=== PATIENT | female | born 1960 | race Caucasian/White ===

== ENCOUNTER 2017-12-21 12:39 | Inpatient (IN) ==
[2017-12-21] MEDS ORDERED: NS 1,000 ML IV ONE (13:39)
--- NOTE | 2017-12-21 13:46 | Emergency Department Report ---
Extremity Problem HPI - General Chief complaint: Extremity Problem,Nontraumatic Stated complaint: ulcer on toe Time Seen by Provider: 12/21/17 13:31 Source: patient, RN notes reviewed, old records reviewed Mode of arrival: ambulatory Limitations: no limitations - History of Present Illness HPI Narrative: 57yo woman presents to the ER for evaluation of a toe ulcer. Pt is a diabetic with diabetic neuropathy. She has a h/o osteomyelitis on the contralateral foot. Pts sx have gotten precipitously worse in the last week. She was started on doxycyline (based on sensitivities) yesterday, but has not improved dramatically after 24hrs/2 doses. Complaint: other (Ulceration) Onset (ago): day(s) Consistency: constant Location: left, toe Context: history of peripheral vascular disease (2/2 DM) - Related Data Home Medications Medication Instructions Recorded Confirmed Duloxetine HCl [Cymbalta] 60 mg PO DAILY #30 10/07/13 12/21/17 Metoprolol Succinate 100 mg PO DAILY #30 10/07/13 12/21/17 SUMAtriptan TAB [Imitrex] 100 mg PO DAILY PRN #0 tab 10/07/13 12/21/17 hydroCHLOROthiazide 25 mg PO DAILY #30 07/16/14 12/21/17 [Hydrochlorothiazide] Meloxicam [Mobic] 15 mg PO DAILY #0 tab 05/20/15 12/21/17 Amlodipine [Norvasc] 10 mg PO DAILY 12/21/17 12/21/17 Canagliflozin [Invokana] 100 mg PO DAILY 12/21/17 12/21/17 Cholecalciferol (Vitamin D3) 1,000 unit PO DAILY 12/21/17 12/21/17 [Vitamin D3] ClonazePAM [Klonopin] 0.5 mg PO BID PRN 12/21/17 12/21/17 Doxycycline Hyclate [Doxycycline 100 mg PO BID 12/21/17 12/21/17 Hyclate] Duloxetine HCl [Duloxetine HCl] 30 mg PO DAILY 12/21/17 12/21/17 Fenofibrate Nanocrystallized 145 mg PO DAILY 12/21/17 12/21/17 [Fenofibrate] Metformin [Glucophage] 1,000 mg PO WB 12/21/17 12/21/17 Omeprazole Magnesium [Prilosec Otc] 20 mg PO DAILY 12/21/17 12/21/17 Sitagliptin Phosphate [Januvia] 50 mg PO DAILY 12/21/17 12/21/17 Vitamin B Complex [Super B-50 1 cap PO DAILY 12/21/17 12/21/17 Complex] Allergies Allergy/AdvReac Type Severity Reaction Status Date / Time ampicillin Allergy HIVES Verified 12/21/17 12:46 kiwi Allergy ANAPHYLACTIC Verified 12/21/17 12:46 SHOCK Review of Systems All systems: reviewed and negative except as stated Integumentary: Reports: as per HPI, non-healing lesions, wounds PFSH Patient Stated Medical History Cerebrovascular Accident No Glaucoma Yes Hypertension Yes Pneumonia Yes: cryptococcus pneumonia 2017 Sleep Apnea Yes Diabetes Mellitus Type 2 Yes Hiatal Hernia Yes Hx Kidney Stones No Hx Renal Disease No Hx Urinary Tract Infection No Anemia Yes: none since endometrial ablation Osteoarthritis Yes: bilat knees Anesthesia Reactions No Blood Transfusions No Post Menopausal Yes: [facility] Medical History (Last Reviewed 10/13/17 @ 12:03 by Eva Choudhury Tova ) Diabetic ulcer of right foot (Acute Medical) GERD (gastroesophageal reflux disease) (Chronic Medical) Type 2 diabetes mellitus (Chronic Medical) Migraine headache (Chronic Medical) Plantar fasciitis of left foot (Chronic Medical) Depression (Chronic Medical) Anxiety (Chronic Medical) ETIENNE treated with BiPAP (Chronic Medical) Renal dysfunction (Inactive Medical) Osteoarthritis (Chronic Medical) External hemorrhoid (Chronic Medical) Esophageal stricture (Chronic Medical) Glaucoma (Chronic Medical) Adie's pupil (Chronic Medical) LT Hypercholesterolemia (Chronic Medical) Hypertension (Chronic Medical) Cryptococcal pneumonitis (Resolved Medical) Epigastric hernia (Resolved Medical) Irregular menses (Resolved Medical) Resolved with uterine ablation Surgical History: * EGD - 05/20/[address] Saini at [facility] in [place], [place]. * Uterine ablation - 07/17/[address] Argelia Brewer at [facility] in [place], [place]. * Open ventral hernia repair with mesh - 10/13/[address] Saini at [facility] in [place], [place]. She did have a 3.5 cm fascial defect in the epigastric region. An 11.[address] hernia patch was placed. * Colonoscopy with excisional hemorrhoidectomy of anterior external hemorrhoid - 10/10/[address] Saini at [facility] in [place], [place]. Colonoscopy was normal. * Excision of left great toenail - [address] Harvey in [place], [place]. * Right knee scope - 2005 Dr. Arreola at [facility] in [place], [place]. * Bone spur removed right ankle - 1974 in [place], [place]. Family History: Family History (Last Reviewed 10/13/17 @ 12:03 by Eva Choudhury Tova) Mother Colon polyps High blood pressure Hypercholesterolemia Heart disease Kidney disease Diabetes Arthritis Liver disease Father ETIENNE (obstructive sleep apnea) Colon polyps High blood pressure Hypercholesterolemia Heart disease Diabetes Arthritis Liver disease Maternal Grandmother High blood pressure Diabetes Maternal Grandfather Heart attack Paternal Grandmother Cancer of breast Diabetes Sister Diabetes Sister ETIENNE (obstructive sleep apnea) Maternal Aunt Diabetes - Social History Smoking status: Never smoker Substance use type: does not use Alcohol intake: current Alcohol intake frequency: holidays/special occasions only Household members: none Current occupational status: unemployed Current occupation: Water Truck Driver Physical Exam - Limitations Limitations: no limitations - General General appearance: alert, in no apparent distress, obese (Morbid) - Normal Exams: Head:: Normocephalic without trauma Eyes:: Pupils are PERRLA w/ EOMI, No scleral icterus, irritation, or foreign bodies noted ENMT:: No facial trauma, nasal exudates, pharyngeal erythema, or exudates are noted Neck:: Full range of motion, without adenopathy Chest/Respirations:: Clear all feng, with good airflow, and symmetry bilaterally Cardiovascular:: Regular rate and rhythm, without murmur or gallop, Pulses 2+ all extremities, capillary refill, <2 seconds all extremities Lymphatic:: No lymphadenopathy Musculoskeletal:: No tenderness, or deformity noted Neurological:: Patient is alert, and oriented Psychiatric:: Patient exhibits, appropriate attention - Skin Skin exam: Present: warm, dry. Absent: intact (Ulceration of the inferomedial aspect of pts great, left toe. Surrounding tissue is liquefying, tunneling, and darkening. The toe itself is swollen and erythematous. There is fibrin in the base of the ulcer.) Course - Consultations Consultation #1: Wound Care: Recommend that pt be admitted; can perform serial exams and debridement while pt is admitted. If pt will not be admitted, call and can arrange f/u. Time: 13:43 Consultation #2: Hospitalist: Will admit for IV atbx and wound care consult. Time: 14:38 Vital Signs Temperature 98.7 F 12/21/17 12:45 Pulse Rate 81 12/21/17 12:45 Respiratory Rate 16 12/21/17 12:45 Blood Pressure 144/92 H 12/21/17 12:45 Pulse Oximetry 95 12/21/17 12:45 Temperature 98.7 F 12/21/17 12:45 Pulse Rate 67 12/21/17 14:20 Respiratory Rate 16 12/21/17 14:20 Blood Pressure 152/83 H 12/21/17 14:20 Pulse Oximetry 95 12/21/17 14:20 Extremity Problem, Nontraumati - MDM Narrative Medical decision making narrative: Diabetic pt with h/o osteomyelitis and peripheral neuropathy. Pt with worsening diabetic ulcer and concern for developing osteomyelitis. Contacted hospitalist for admission for continued IV atbx and further eval with wound care. - Differential Diagnosis Likely: gout (Diabetic ulcer, gangrene, osteomyelitis), cellulitis, lower extremity edema - Medical Records Attestation: I reviewed the patient's medical records. - Lab Data Attestation: I reviewed the patient's lab results. Result diagrams: 12/21/17 13:57 12/21/17 13:57 Lab Results 12/21/17 12/21/17 Range/Units 13:57 13:57 WBC 13.0 H (4.5-11.0) T/MM3 RBC 4.82 (4.00-5.20) M/MM3 Hgb 14.6 (12-16) GM/DL Hct 45.0 (36-46) % MCV 93.4 (80-100) UM3 MCH 30.3 (26-34) UUG MCHC 32.4 (31-37) GM/DL RDW Std Deviation 47.2 (36.9-50.2) FL Plt Count 264 (130-400) T/MM3 MPV 11.7 (9.4-12.4) UM3 Immature Gran % (Auto) 0.4 (0.0-0.5) % Neut % (Auto) 74.0 H (33-66) % Lymph % (Auto) 15.5 L (23-45) % [place] % (Auto) 5.7 (0-9.0) % Eos % (Auto) 4.0 (0-4) % Baso % (Auto) 0.4 (0-2) % Neut # (Auto) 9.6 H (1.8-7.7) T/MM3 Lymph # (Auto) 2.0 (1-4.8) T/MM3 [place] # (Auto) 0.7 (0-0.8) T/MM3 Eos # (Auto) 0.5 (0-0.5) T/MM3 Baso # (Auto) 0.1 (0-0.2) T/MM3 Abs Immat Gran (auto) 0.05 H (0.00-0.03) T/MM3 Turbidity < 20 (0-20) Sodium 143 (134-144) MEQ/L Potassium 3.7 (3.6-5) MEQ/L Chloride 105 (98-107) MEQ/L Carbon Dioxide 28 (22-30) MEQ/L Anion Gap 10 (5-15) meq/L BUN 24.0 H (7-17) MG/DL Creatinine 1.3 H (0.7-1.2) mg/dL GFR Calculation 43 BUN/Creatinine Ratio 19 (6-26) RATIO Glucose 211 H (65-110) MG/DL Calculated Osmolality 285 H (261-280) MOSM/KG Calcium 9.9 (8.4-10.2) MG/DL Icterus Index < 2 (0-7) C-Reactive Protein 33.5 H (0-9) mg/L Specimen Hemolysis < 15 (0-25) - Radiology Data Attestation: I reviewed the patient's radiology results. Disposition Clinical Impression: Diabetic ulcer of toe Qualifiers: Diabetes mellitus type: type 1 Laterality: left Non-pressure ulcer stage: with necrosis of muscle Qualified Code(s): E10.621 - Type 1 diabetes mellitus with foot ulcer; L97.523 - Non-pressure chronic ulcer of other part of left foot with necrosis of muscle Disposition: [facility] Print Language: Latvian Condition: Stable Prescriptions: No Action hydroCHLOROthiazide [Hydrochlorothiazide] 25 mg PO DAILY #30 Canagliflozin [Invokana] 100 mg PO DAILY Sitagliptin Phosphate [Januvia] 50 mg PO DAILY Omeprazole Magnesium [Prilosec Otc] 20 mg PO DAILY Duloxetine HCl [Duloxetine HCl] 30 mg PO DAILY Vitamin B Complex [Super B-50 Complex] 1 cap PO DAILY Fenofibrate Nanocrystallized [Fenofibrate] 145 mg PO DAILY Amlodipine [Norvasc] 10 mg PO DAILY Doxycycline Hyclate [Doxycycline Hyclate] 100 mg PO BID Duloxetine HCl [Cymbalta] 60 mg PO DAILY #30 Metoprolol Succinate 100 mg PO DAILY #30 SUMAtriptan TAB [Imitrex] 100 mg PO DAILY PRN #0 tab PRN Reason: Migraine Headache Meloxicam [Mobic] 15 mg PO DAILY #0 tab Cholecalciferol (Vitamin D3) [Vitamin D3] 1,000 unit PO DAILY Metformin [Glucophage] 1,000 mg PO WB ClonazePAM [Klonopin] 0.5 mg PO BID PRN PRN Reason: Anxiety Referrals: Yelena Plunkett DO [Primary Care Provider] - Time of Disposition: 14:41 - Seen By: physician
[2017-12-21] MEDS: SALINE FLUSH 10ml SYRINGE IVF PRN (13:55)
--- NOTE | 2017-12-21 14:40 | XRay Report ---
Indication: C/f osteo PROCEDURE: XR foot LT min 3V: Encounter: Initial Comparison: None Findings: There is no acute fracture, dislocation or malalignment identified. No obvious lytic lesions or periosteal reaction to suggest osteomyelitis. Impression: No acute osseous abnormality. .
[2017-12-21] MEDS ORDERED: VANCOMYCIN - PHARMACY CONSULT MC ONE (15:06)
--- NOTE | 2017-12-21 15:18 | History & Physical Report ---
History of Present Illness Date: 12/21/17 Chief complaint: Left great toe wound HPI: She is a 57-year-old female who has been under the outpatient wound care services for left great toe ulcer. She reports she has been receiving wound care for approximately 2 weeks. Outpatient wound culture was obtained on which was positive for staph aureus . Patient was started on oral doxycycline yesterday 12/20/17. Today, swelling and erythema is worse. She presented to the wound care clinic. However, patient was directed to present to the emergency room for acute evaluation and treatment. WBC count was found to be slightly elevated at 13, neutrophils 74%. Venous lactate 1.4. Renal function is slightly elevated with a B1 of 24 and creatinine of 1.3, last creatinine was in August 2017 at which it was 1.0, which appears to be her baseline. CRP is slightly elevated at 33.5. Left foot x-ray does not reveal any acute osseous abnormality or concern for osteomyelitis. She was started on IV Vancomycin while in the ER. Due to the worsening symptoms despite outpatient oral antibiotics as well as wound care. It was felt that patient would require more aggressive treatment, the hospital services were contacted and accepted patient for inpatient admission. It is expected that her stay will be greater than 2 overnights. Review of Systems All systems PM: 10-point ROS was reviewed, no additional remarkable complaints except - Integumentary/Breasts Integumentary: Present: as per HPI, wounds (Left Great toe) Past Medical History Medical History: Medical History (Last Reviewed 10/13/17 @ 12:03 by Eva Choudhury [facility]) Diabetic ulcer of right foot (Acute) GERD (gastroesophageal reflux disease) (Chronic) Type 2 diabetes mellitus (Chronic) Migraine headache (Chronic) Plantar fasciitis of left foot (Chronic) Depression (Chronic) Anxiety (Chronic) ETIENNE treated with BiPAP (Chronic) Renal dysfunction (Inactive) Osteoarthritis (Chronic) External hemorrhoid (Chronic) Esophageal stricture (Chronic) Glaucoma (Chronic) Adie's pupil (Chronic) LT Hypercholesterolemia (Chronic) Hypertension (Chronic) Cryptococcal pneumonitis (Resolved) Epigastric hernia Irregular menses Resolved with uterine ablation Medical History Updates: Hx osteomyelitis of right foot- was followed by Dr. Kim Surgical History: EGD - 05/20/[address] Saini at [facility] in [place], [place]. Uterine ablation - 07/17/[address] Argelia Brewer at [facility] in [place], [place]. Open ventral hernia repair with mesh - 10/13/[address] Saini at [facility] in [place], [place]. She did have a 3.5 cm fascial defect in the epigastric region. An 11.[address] hernia patch was placed. * Colonoscopy with excisional hemorrhoidectomy of anterior external hemorrhoid - 10/10/[address] Saini at [facility] in [place], [place]. Colonoscopy was normal. * Excision of left great toenail - [address] Harvey in [place], [place]. * Right knee scope - 2005 Dr. Arreola at [facility] in [place], [place]. * Bone spur removed right ankle - 1974 in [place], [place]. Family History: Family History Mother Colon polyps High blood pressure Hypercholesterolemia Heart disease Kidney disease Diabetes Arthritis Liver disease Father ETIENNE (obstructive sleep apnea) Colon polyps High blood pressure Hypercholesterolemia Heart disease Diabetes Arthritis Liver disease Maternal Grandmother High blood pressure Diabetes Maternal Grandfather Heart attack Paternal Grandmother Cancer of breast Diabetes Sister Diabetes Sister ETIENNE (obstructive sleep apnea) Maternal Aunt Diabetes Family History: As Above - Social History Smoking status: Light tobacco smoker (occasional cigar smoker) Substance use type: does not use Alcohol intake frequency: holidays/special occasions only Housing: house Current occupational status: unemployed Social history: PCP Dr Plunkett Medications Home Medications Medication Instructions Recorded Confirmed Type Duloxetine HCl [Cymbalta] 60 mg PO DAILY #30 10/07/13 12/21/17 History Metoprolol Succinate 100 mg PO DAILY #30 10/07/13 12/21/17 History SUMAtriptan TAB [Imitrex] 100 mg PO DAILY PRN #0 tab 10/07/13 12/21/17 History hydroCHLOROthiazide 25 mg PO DAILY #30 07/16/14 12/21/17 History [Hydrochlorothiazide] Meloxicam [Mobic] 15 mg PO DAILY #0 tab 05/20/15 12/21/17 History Amlodipine [Norvasc] 10 mg PO DAILY 12/21/17 12/21/17 History Canagliflozin [Invokana] 100 mg PO DAILY 12/21/17 12/21/17 History Cholecalciferol (Vitamin D3) 1,000 unit PO DAILY 12/21/17 12/21/17 History [Vitamin D3] ClonazePAM [Klonopin] 0.5 mg PO BID PRN 12/21/17 12/21/17 History Doxycycline Hyclate [Doxycycline 100 mg PO BID 12/21/17 12/21/17 History Hyclate] Duloxetine HCl [Duloxetine HCl] 30 mg PO DAILY 12/21/17 12/21/17 History Fenofibrate Nanocrystallized 145 mg PO DAILY 12/21/17 12/21/17 History [Fenofibrate] Metformin [Glucophage] 1,000 mg PO WB 12/21/17 12/21/17 History Omeprazole Magnesium [Prilosec Otc] 20 mg PO DAILY 12/21/17 12/21/17 History Sitagliptin Phosphate [Januvia] 50 mg PO DAILY 12/21/17 12/21/17 History Vitamin B Complex [Super B-50 1 cap PO DAILY 12/21/17 12/21/17 History Complex] Allergies Allergy/AdvReac Type Severity Reaction Status Date / Time ampicillin Allergy HIVES Verified 12/21/17 12:46 kiwi Allergy ANAPHYLACTIC Verified 12/21/17 12:46 SHOCK Exam Vital Signs: Temperature 98.7 F 12/21/17 12:45 Pulse Rate 67 12/21/17 14:20 Respiratory Rate 16 12/21/17 14:20 Blood Pressure 152/83 H 12/21/17 14:20 Pulse Oximetry 95 12/21/17 14:20 Height/Weight/BMI: Height 1.63 m Weight 137.4 kg - Constitutional Present: no acute distress, well nourished, well developed - Routine HEENT Exam Eye: Present: EOMI ENT: Present: mucous membranes moist, dentition normal - Routine Respiratory Exam Present: CTA bilaterally. Absent: wheezes - Routine Cardiovascular Exam Present: RRR, S1, S2. Absent: murmur - Routine Abdominal Exam Present: soft, normoactive bowel sounds, non distended. Absent: tenderness - Routine Extremities Exam Present: normal capillary refill - Detailed Lower Extremity Exam Top foot image: 1 - erythema, swelling Bottom foot image: 1 - ulceration - Routine Skin Exam Present: intact, dry, warm - Routine Neurological Exam Present: alert, oriented X3, CN II-XII intact - Routine Psychiatric Exam Present: normal affect, normal thought process, cooperative Results - Labs CBC & Chem 7: 12/21/17 13:57 12/21/17 13:57 Microbiology Results: Microbiology 12/21/17 14:03 Peripheral/Iv Start Blood Culture - Preliminary Culture Initiated - Results Pending 12/21/17 13:58 Peripheral/Iv Start Blood Culture - Preliminary Culture Initiated - Results Pending Assessment and Plan (1) Diabetic ulcer of toe Current visit: Yes Status: Acute Assessment and Plan: Impression Diabetic foot ulcer- left great toe Cellulitis-left great toe (wound culture from 12/14/17 reveals staph aureus) Failed outpatient treatment- started on doxycycline 12/20/17 Type II diabetes Hypertension Diabetic neuropathy Morbid obesity-BMI 52 History of osteomyelitis History of cryptococcal pneumonia Plan Initial admission order was placed by the emergency room which was outpatient observation. At time of admission, sepsis, changed inpatient as she does be criteria with diabetic foot ulcer, cellulitis with leukocytosis, failed outpatient treatment. It is expected that her stay will require greater than 2 overnights. Past medical history reviewed. Wound culture was obtained on 12/14/17 that is positive growth for staph aureus Patient was initially started on oral doxycycline. However, erythema and swelling worsened. Start patient on IV vancomycin NS at 100 ML/hr for gentle hydration Monitor Accu-Cheks- Usually takes Metformin and Januvia Monitor blood pressures, continue on home Norvasc, hydrochlorothiazide, metoprolol Lovenox 40 BID for DVT prophylaxis Consultation placed to for wound evaluation. Will place consultation to Dr Kim for further infectious disease recommendations Recheck CBC and BMP recheck tomorrow Will discuss further orders and plan of care with attending, Dr. Hunter At time of discharge medical care will return to primary care provider, Dimitrios DVT Prophylaxis: SCD's Resuscitation Status: Full Code - Time spent with patient Time with patient PN: 50 minutes - Physician Narrative Physician: Mere Hunter MD Narrative: Date: 12/21/17 Time: 1820 Ms. Baker was seen by my this evening. She is not complaining of anything. She's not had any fever or chills. She denies any lightheadedness or dizziness. She denies any coffer sputum production. She denies any shortness of breath, discipline exertion, PND or orthopnea. She denies any chest pain or palpitations. She denies nausea, vomiting, diarrhea, constipation, black tarry stools or bloody stools. She denies any genitourinary symptoms. She does occasionally have some lower extremity edema. She does have diabetic neuropathy and has minimal feeling in her feet. She states her left great toe pain level is about a one or 2 at a scale 1 to 10. She has been under the care of outpatient services. She was recently started on doxycycline yesterday. She felt the swelling and redness was worse and she presented to the wound care clinic. They directed her to the emergency room. She did have a slightly elevated white blood count. She did have a mildly elevated CRP at 33.5. She was started on IV vancomycin in the emergency room. Physical exam: Gen: alert and oriented. NAD Skin: warm and dry HEENT: NC/AT PERRL, EOMI, Sclera, lids and conjunctiva wnl. MMM. OP clear. Neck: No JVD, Carotids 2+ without bruits Lungs: clear. No rales, rhonchi or wheezes CV: regular. No murmur, rub or gallop Abd: obese, soft. +BS. NT/ND MS: No edema. Good strength and ROM, bilateral great toes wrapped in bandages, I did not remove these. The [facility] has documented the left great toe lesion Neuro: No focal deficits Psy: Appropriate mood and affect A/P: Diabetic foot ulcer- left great toe, Cellulitis-left great toe (wound culture from 12/14/17 reveals staph aureus) -12/14/17 wound culture grew out staph aureus sensitive to Doxsee which is what she was started on. -Will continue wound and skin care -patient started on vancomycin, we will continue that -blood cultures have been drawn and of course results pending -Failed outpatient treatment- started on doxycycline 12/20/17 Type II diabetes -will continue metformin, Januvia, Canagliflozin and sliding scale insulin as needed -diabetic neuropathy Hypertension -will continue metoprolol succinate,hydrochlorothiazide and amlodipine as at home Depression -Cymbalta and clonazepam PRN dyslipidemia -on fenofibrate obstructive sleep apnea not using a CPAP -overnight oximetry gastroesophageal reflux disease -omeprazole 20 mg daily Morbid obesity-BMI 52 History of osteomyelitis History of cryptococcal pneumonia I have independently examined and interviewed the patient. I have reviewed her labs, notes and imaging. Patient was discussed at length with the nurse practitioner and the plan was formulated in conjunction with her. I agree with the documented assessment and plan Hospital Course Summary Disclaimer: The visit summary below is not to be considered part of the above Progress Note. Hospital Course: Impression Diabetic foot ulcer- left great toe Cellulitis-left great toe (wound culture from 12/14/17 reveals staph aureus) Failed outpatient treatment- started on doxycycline 12/20/17 Type II diabetes Hypertension Diabetic neuropathy Morbid obesity-BMI 52 History of osteomyelitis History of cryptococcal pneumonia Plan Initial admission order was placed by the emergency room which was outpatient observation. At time of admission, sepsis, changed inpatient as she does be criteria with diabetic foot ulcer, cellulitis with leukocytosis, failed outpatient treatment. It is expected that her stay will require greater than 2 overnights. Past medical history reviewed. Wound culture was obtained on 12/14/17 that is positive growth for staph aureus Patient was initially started on oral doxycycline. However, erythema and swelling worsened. Start patient on IV vancomycin NS at 100 ML/hr for gentle hydration Monitor Accu-Cheks- Usually takes Metformin and Januvia Monitor blood pressures, continue on home Norvasc, hydrochlorothiazide, metoprolol Lovenox 40 BID for DVT prophylaxis Consultation placed to for wound evaluation. Will place consultation to Dr Kim for further infectious disease recommendations Recheck CBC and BMP recheck tomorrow Will discuss further orders and plan of care with attending, Dr. Hunter At time of discharge medical care will return to primary care provider, Dimitrios
[2017-12-21 15:41] VITALS: BMI 52.2
[2017-12-21] MEDS: ENOXAPARIN 40 MG/0.4 ML INJECTION SQ SCH (20:58)
[2017-12-22] MEDS: OMEPRAZOLE 20 MG CAPSULE PO SCH (05:33)
[2017-12-22] MEDS ORDERED: VITAMIN B COMPLEX PO SCH (09:00)
[2017-12-22] MEDS ORDERED: NON-FORMULARY MEDICATION 1 EACH EACH (Cholecalciferol (Vitamin D3) [Vitamin D3] 1,000 UNIT PO SCH (09:00)
[2017-12-22] MEDS ORDERED: GADOTERIDOL 279.3mg/ml - 10ml vial IVP ONE (09:33)
[2017-12-22] MEDS ORDERED: SALINE FLUSH 10ml SYRINGE ONE (09:33)
--- NOTE | 2017-12-22 10:56 | Magnetic Resonance Report ---
Indication: Great toe open wound and cellulitis PROCEDURE: MR foot LT wo/w con: Encounter: Initial Comparison: Radiographs dated December 21, 2017 Technique: Multiplanar multisequence MR imaging of the left foot was performed with and without contrast. Contrast: 27 mL ProHance Findings: There is abnormal T1 hypointensity and T2 hyperintensity within the great toe distal phalanx. Underlying this is a skin wound with a T2 hyperintense phlegmon or small abscess measuring 1.3 cm in diameter on axial T1 postcontrast image #24 which has a sinus tract to the plantar surface. This is at the area of clinically indicated skin wound. The remaining bone marrow signal intensity is normal. No acute fracture. Mild degenerative change in the midfoot. No other fluid collections. Edema in the intrinsic foot musculature, a common finding in diabetics. There is thickening of the distal Achilles tendon suggesting tendinopathy. The remaining flexor and extensor tendons are grossly intact. Impression: Osteomyelitis of the great toe distal phalanx. .
[2017-12-22] MEDS: ENOXAPARIN 40 MG/0.4 ML INJECTION SQ SCH ×2 (11:10→21:51)
[2017-12-22] MEDS: SITAGLIPTIN 100 MG TABLET PO SCH (11:10)
[2017-12-22] MEDS: VITAMIN B COMPLEX + C TABLET PO SCH (11:10)
[2017-12-22] MEDS: METFORMIN 500 MG TABLET PO SCH (11:11)
[2017-12-22] MEDS: DULOXETINE 60 MG CAPSULE PO SCH (11:11)
[2017-12-22] MEDS: DULOXETINE 30 MG CAPSULE PO SCH (11:11)
[2017-12-22] MEDS: CANAGLIFLOZIN 100mg TABLET PO SCH (11:11)
[2017-12-22] MEDS: FENOFIBRATE 145 MG TABLET PO SCH (11:12)
[2017-12-22] MEDS: AMLODIPINE 10 MG TABLET PO SCH (11:12)
[2017-12-22] MEDS: ACETAMINOPHEN 325 MG TABLET PO PRN (11:12)
[2017-12-22] MEDS: ClonazePAM 0.5 MG TABLET PO PRN (11:13)
[2017-12-22] MEDS: MELOXICAM 15 MG TABLET PO SCH (11:14)
--- NOTE | 2017-12-22 11:53 | Progress Note ---
- Date 12/22/17 Subjective: Ms. Baker is a 57yo female with h/o osteomyelitis of the middle right toe in the past. She has diabetic neuropathy and has poor feeling in her feet. She developed a blister and skin sloughing of the left great toe recently. She has been receiving wound care for approximately 2 weeks. Outpatient wound culture was obtained on 12/14/17 which was positive for staph aureus. She was started on oral doxycycline 12/20/17. On 12/21/17, the swelling and erythema was worse so she presented to the wound care clinic. From there she was directed to present to the emergency room for acute evaluation and treatment. WBC count was found to be slightly elevated at 13, neutrophils 74%. Venous lactate 1.4. Renal function is slightly elevated with a BUN of 24 and creatinine of 1.3, last creatinine was in August 2017 at which it was 1.0, which appears to be her baseline. CRP is slightly elevated at 33.5. Left foot x-ray does not reveal any acute osseous abnormality or concern for osteomyelitis. She was started on IV Vancomycin while in the ER. Due to the worsening symptoms despite outpatient oral antibiotics as well as wound care. It was felt that patient would require more aggressive treatment, the hospital services were contacted and accepted patient for inpatient admission. It is expected that her stay will be greater than 2 overnights. When seen by me this morning she is up in her chair eating breakfast. She denies any complaints specifically no fever or chills. She denies shortness of breath, cough or sputum production. She is eating well. She has no nausea or vomiting. Her bowels are moving. No issues with urinating. And no significant pain in her toe. Her MRI did come back showing osteomyelitis. Objective Vital signs: Temperature 98.1 F 12/22/17 09:24 Pulse Rate 75 12/22/17 11:05 Respiratory Rate 16 12/22/17 09:24 Blood Pressure 147/90 H 12/22/17 11:05 Pulse Oximetry 97 12/22/17 09:24 Height/Weight/BMI: Height 1.63 m Weight 138.6 kg Body Mass Index 52.2 Comments: Gen: alert and oriented. NAD Skin: warm and dry HEENT: NC/AT PERRL, EOMI, Sclera, lids and conjunctiva wnl. MMM. OP clear. Neck: No JVD, Carotids 2+ without bruits Lungs: clear. No rales, rhonchi or wheezes CV: regular. No murmur, rub or gallop Abd: obese, soft. +BS. NT/ND MS: Good strength and ROM, bilateral great toes wrapped in bandages, I did not remove these. The BUILDING MANAGER has documented the left great toe lesion The base of the bandage shows edema and mild erythema. There is mild edema of the dorsal foot but no redness. Neuro: No focal deficits Psy: Appropriate mood and affect Results - Labs CBC & Chem 7: 12/22/17 05:16 12/22/17 05:16 Assessment and Plan (1) Diabetic ulcer of toe Current visit: Yes Status: Acute Assessment and Plan: A/P: Diabetic foot ulcer with Cellulitis and evidence of great toe distal phalanx. -wound culture from 12/14/17 reveals staph aureus, repeat wound cx shows gm neg beena. -Blood cx pending -Failed outpatient treatment- started on doxycycline 12/20/17 -will consult orthopedic surgery -Will continue wound and skin care -patient on vancomycin Type II diabetes -will continue metformin, Januvia, Canagliflozin and sliding scale insulin as needed -diabetic neuropathy Hypertension -will continue metoprolol succinate,hydrochlorothiazide and amlodipine as at home -Adjust for better control Depression -Cymbalta daily and clonazepam PRN dyslipidemia -on fenofibrate obstructive sleep apnea not using a CPAP -overnight oximetry gastroesophageal reflux disease -omeprazole 20 mg daily Morbid obesity-BMI 52 History of osteomyelitis Prophylaxis -Lovenox, PPI At time of discharge medical care will return to primary care provider, Dr. Plunkett - Physician Narrative Narrative: Date: 12/22/17 Time: 1138 Hospital Course Summary Disclaimer: The visit summary below is not to be considered part of the above Progress Note. Hospital Course: Impression Diabetic foot ulcer- left great toe Cellulitis-left great toe (wound culture from 12/14/17 reveals staph aureus) Failed outpatient treatment- started on doxycycline 12/20/17 Type II diabetes Hypertension Diabetic neuropathy Morbid obesity-BMI 52 History of osteomyelitis History of cryptococcal pneumonia Plan Initial admission order was placed by the emergency room which was outpatient observation. At time of admission, sepsis, changed inpatient as she does be criteria with diabetic foot ulcer, cellulitis with leukocytosis, failed outpatient treatment. It is expected that her stay will require greater than 2 overnights. Past medical history reviewed. Wound culture was obtained on 12/14/17 that is positive growth for staph aureus Patient was initially started on oral doxycycline. However, erythema and swelling worsened. Start patient on IV vancomycin NS at 100 ML/hr for gentle hydration Monitor Accu-Cheks- Usually takes Metformin and Januvia Monitor blood pressures, continue on home Norvasc, hydrochlorothiazide, metoprolol Lovenox 40 BID for DVT prophylaxis Consultation placed to for wound evaluation. Will place consultation to Dr Kim for further infectious disease recommendations Recheck CBC and BMP recheck tomorrow Will discuss further orders and plan of care with attending, Dr. Hunter At time of discharge medical care will return to primary care provider, Dimitrios
[2017-12-22] MEDS ORDERED: INSULIN ASPART 100unit/ml INJECTION SQ PRN (11:59)
--- NOTE | 2017-12-22 13:42 | Orthopedic History & Physical ---
Orthopedic HPI - HPI Comments First noticed ulceration on the plantar aspect of her left great toe 3 weeks ago. Started be seen in clinic 2 weeks ago. Had increased pain and swelling and redness and was admitted from clinic to the emergency room and then admitted her to the hospitalist service and I was consulted for management of her left toe diabetic foot ulcer. I asked him to obtain an MRI. She states that her blood sugars been good recently and her most recent A1c was 6. something. [facility] Patient Stated Medical History Glaucoma Yes Hypertension Yes Pneumonia Yes: cryptococcus pneumonia 2017 Sleep Apnea Yes Diabetes Mellitus Type 2 Yes Hiatal Hernia Yes Other Yes: KIDNEY INFECTIONS WHEN YOUNGER Anemia Yes: none since endometrial ablation Osteoarthritis Yes: bilat knees Other Musculoskeletal Yes: HX OF MIGRAINES Depression Yes Post Menopausal Yes: [facility] Medical History (Last Reviewed 10/13/17 @ 12:03 by Eva Choudhury [facility] ) Diabetic ulcer of right foot (Acute Medical) GERD (gastroesophageal reflux disease) (Chronic Medical) Type 2 diabetes mellitus (Chronic Medical) Migraine headache (Chronic Medical) Plantar fasciitis of left foot (Chronic Medical) Depression (Chronic Medical) Anxiety (Chronic Medical) ETIENNE treated with BiPAP (Chronic Medical) Renal dysfunction (Inactive Medical) Osteoarthritis (Chronic Medical) External hemorrhoid (Chronic Medical) Esophageal stricture (Chronic Medical) Glaucoma (Chronic Medical) Adie's pupil (Chronic Medical) LT Hypercholesterolemia (Chronic Medical) Hypertension (Chronic Medical) Cryptococcal pneumonitis (Resolved Medical) Epigastric hernia (Resolved Medical) Irregular menses (Resolved Medical) Resolved with uterine ablation Medical History Updates: Hx osteomyelitis of right foot- was followed by Dr. Kim Surgical History: [place] 05[place]20[place] [place] [facility] [place] Uterine ablation - 07/17/[address] Argelia Brewer [place] [facility] [place]. Open ventral hernia repair with mesh - 10/13/[address] [place]ain[place] [facility] [place]. She did have a 3.5 cm fascial defect in the epigastric region. An 11.[address] hernia patch was placed. * Colonoscopy with excisional hemorrhoidectomy of anterior external hemorrhoid - 10/10/[address] [place]ain[place] [facility] [place] Colonoscopy was normal. * Excision of left great toenail - [address] Harvey in [place], [place]. * Right knee scope - 2005 [place]. Ar[place] [facility] [place] * Bone spur removed right ankle - 1974 in [place], [place]. Family History: Family History (Last Reviewed 10/13/17 @ 12:03 by Eva Choudhury, [facility]) Mother Colon polyps High blood pressure Hypercholesterolemia Heart disease Kidney disease Diabetes Arthritis Liver disease Father ETIENNE (obstructive sleep apnea) Colon polyps High blood pressure Hypercholesterolemia Heart disease Diabetes Arthritis Liver disease Maternal Grandmother High blood pressure Diabetes Maternal Grandfather Heart attack Paternal Grandmother Cancer of breast Diabetes Sister Diabetes Sister ETIENNE (obstructive sleep apnea) Maternal Aunt Diabetes - Social History Smoking status: Light tobacco smoker (occasional cigar smoker) Substance use type: does not use Alcohol intake: current Alcohol intake frequency: holidays/special occasions only Housing: house Household members: none Current occupational status: unemployed Current occupation: Intermediate School Teacher Review of Systems - Constitutional Constitutional: Absent: chills, fever(s), night sweats - Cardiovascular Cardiovascular: Absent: chest pain, palpitations - Respiratory Respiratory: Absent: cough, dyspnea - Gastrointestinal Gastrointestinal: Absent: abdominal pain, nausea, vomiting - Genitourinary Genitourinary Female: Absent: dysuria - Musculoskeletal Musculoskeletal: Present: as per HPI - Integumentary/Breasts Integumentary: Absent: lesions, rash - Neurological Neurological: Absent: numbness, tingling Medications Home Medications Medication Instructions Recorded Confirmed Type Duloxetine HCl [Cymbalta] 60 mg PO DAILY #30 10/07/13 12/21/17 History Metoprolol Succinate 100 mg PO DAILY #30 10/07/13 12/21/17 History SUMAtriptan TAB [Imitrex] 100 mg PO DAILY PRN #0 tab 10/07/13 12/21/17 History hydroCHLOROthiazide 25 mg PO DAILY #30 07/16/14 12/21/17 History [Hydrochlorothiazide] Meloxicam [Mobic] 15 mg PO DAILY #0 tab 05/20/15 12/21/17 History Amlodipine [Norvasc] 10 mg PO DAILY 12/21/17 12/21/17 History Canagliflozin [Invokana] 100 mg PO DAILY 12/21/17 12/21/17 History Cholecalciferol (Vitamin D3) 1,000 unit PO DAILY 12/21/17 12/21/17 History [Vitamin D3] ClonazePAM [Klonopin] 0.5 mg PO BID PRN 12/21/17 12/21/17 History Doxycycline Hyclate [Doxycycline 100 mg PO BID 12/21/17 12/21/17 History Hyclate] Duloxetine HCl [Duloxetine HCl] 30 mg PO DAILY 12/21/17 12/21/17 History Fenofibrate Nanocrystallized 145 mg PO DAILY 12/21/17 12/21/17 History [Fenofibrate] Metformin [Glucophage] 1,000 mg PO WB 12/21/17 12/21/17 History Omeprazole Magnesium [Prilosec Otc] 20 mg PO DAILY 12/21/17 12/21/17 History Sitagliptin Phosphate [Januvia] 50 mg PO DAILY 12/21/17 12/21/17 History Vitamin B Complex [Super B-50 1 cap PO DAILY 12/21/17 12/21/17 History Complex] Allergies Allergy/AdvReac Type Severity Reaction Status Date / Time ampicillin Allergy HIVES Verified 12/21/17 12:46 kiwi Allergy ANAPHYLACTIC Verified 12/21/17 12:46 SHOCK Exam - Constitutional Vital Signs: Temperature 98.1 F 12/22/17 09:24 Pulse Rate 75 12/22/17 11:05 Respiratory Rate 16 12/22/17 09:24 Blood Pressure 147/90 H 12/22/17 11:05 Pulse Oximetry 97 12/22/17 09:24 General: cooperative, healthy appearing, no acute distress, well developed, well groomed Nutritional Appearance: well nourished Orientation: alert - Psych Mood: normal Affect: normal Attitude: cooperative - LLE Neurological: normal to light touch Vascular: dorsalis pedis pulse within normal limits Left Lower Extremity Comments: Unstageable ulcer to the plantar aspect of the great toe. There was a foul odor and obvious necrotic skin and subcutaneous tissue. There is swelling and erythema to the entire great toe. - Wound Left Great Toe Wound Drainage Amount: None Wound Drainage Odor: No Odor Wound Bed Appearance: Yellow, Eschar - Labs Result Diagrams: 12/22/17 05:16 12/22/17 05:16 Abnormal lab results 12/22/17 12/22/17 Range/Units 05:16 05:16 WBC 11.8 H (4.5-11.0) T/MM3 Neut % (Auto) 66.3 H (33-66) % Lymph % (Auto) 21.3 L (23-45) % Eos % (Auto) 4.3 H (0-4) % Neut # (Auto) 7.8 H (1.8-7.7) T/MM3 [place] # (Auto) 0.9 H (0-0.8) T/MM3 Abs Immat Gran (auto) 0.04 H (0.00-0.03) T/MM3 BUN 23.0 H (7-17) MG/DL Glucose 141 H (65-110) MG/DL Calculated Osmolality 281 H (261-280) MOSM/KG H & H 12/22/17 Range/Units 05:16 Hgb 14.2 (12-16) GM/DL Hct 43.8 (36-46) % - Diagnostic results Ankle/Foot x-ray: image reviewed Other Results: report reviewed (foot MRI shows osteomyelitis of the distal phalanx of left great toe) Orthopedic Assessment and Plan (1) Type 2 diabetes mellitus with unstageable decubitus ulcer of toe Status: Acute Assessment and Plan: I reviewed her image findings as well as exam with her. I recommended at minimum a partial amputation to the left great toe through the IP joint. I do not have enough soft tissue coverage to close the wound at the time of this amputation and she may require a wound vac. the other option would be to perform a great toe amputation at the base of the toe. she will think about these options and let me know how she would like to proceed. I would be willing to perform the procedure tomorrow if she has made the decision by that time. Hospital Course Summary Disclaimer: The visit summary below is not to be considered part of the above Progress Note. Hospital Course: Impression Diabetic foot ulcer- left great toe Cellulitis-left great toe (wound culture from 12/14/17 reveals staph aureus) Failed outpatient treatment- started on doxycycline 12/20/17 Type II diabetes Hypertension Diabetic neuropathy Morbid obesity-BMI 52 History of osteomyelitis History of cryptococcal pneumonia Plan Initial admission order was placed by the emergency room which was outpatient observation. At time of admission, sepsis, changed inpatient as she does be criteria with diabetic foot ulcer, cellulitis with leukocytosis, failed outpatient treatment. It is expected that her stay will require greater than 2 overnights. Past medical history reviewed. Wound culture was obtained on 12/14/17 that is positive growth for staph aureus Patient was initially started on oral doxycycline. However, erythema and swelling worsened. Start patient on IV vancomycin NS at 100 ML/hr for gentle hydration Monitor Accu-Cheks- Usually takes Metformin and Januvia Monitor blood pressures, continue on home Norvasc, hydrochlorothiazide, metoprolol Lovenox 40 BID for DVT prophylaxis Consultation placed to for wound evaluation. Will place consultation to Dr Kim for further infectious disease recommendations Recheck CBC and BMP recheck tomorrow Will discuss further orders and plan of care with attending, Dr. Hunter At time of discharge medical care will return to primary care provider, Dimitrios
[2017-12-22] MEDS: SALINE FLUSH 10ml SYRINGE IVF PRN (17:31)
[2017-12-23] MEDS: SALINE FLUSH 10ml SYRINGE IVF PRN (05:30)
[2017-12-23] MEDS: OMEPRAZOLE 20 MG CAPSULE PO SCH (05:30)
--- NOTE | 2017-12-23 09:32 | Orthopedic Progress Note ---
Date: Date: 12/23/17 Time: 930 Subjective/Severity of Illness: no changes Exam - Constitutional Vital Signs: Temperature 98.6 F 12/23/17 07:53 Pulse Rate 66 12/23/17 07:53 Respiratory Rate 14 12/23/17 07:53 Blood Pressure 130/81 12/23/17 07:53 Pulse Oximetry 96 12/23/17 07:53 General: cooperative, healthy appearing, no acute distress, well developed, well groomed Nutritional Appearance: well nourished Orientation: alert - Wound Left Great Toe Wound Drainage Amount: Small Wound Drainage Description: Purulent Wound Drainage Odor: Foul Odor Wound Bed Appearance: Yellow, Eschar, Necrotic - Labs Result Diagrams: 12/23/17 04:50 12/23/17 04:50 Abnormal lab results 12/23/17 12/23/17 Range/Units 04:50 04:50 WBC 13.3 H (4.5-11.0) T/MM3 Neut % (Auto) 68.4 H (33-66) % Lymph % (Auto) 19.8 L (23-45) % Eos % (Auto) 4.4 H (0-4) % Neut # (Auto) 9.1 H (1.8-7.7) T/MM3 [place] # (Auto) 0.9 H (0-0.8) T/MM3 Eos # (Auto) 0.6 H (0-0.5) T/MM3 Abs Immat Gran (auto) 0.05 H (0.00-0.03) T/MM3 BUN 23.0 H (7-17) MG/DL Glucose 144 H (65-110) MG/DL C-Reactive Protein 11.7 H (0-9) mg/L H & H 12/22/17 12/23/17 Range/Units 05:16 04:50 Hgb 14.2 14.6 (12-16) GM/DL Hct 43.8 44.0 (36-46) % Orthopedic Assessment and Plan (1) Type 2 diabetes mellitus with unstageable decubitus ulcer of toe Status: Acute Assessment and Plan: Plan on partial amputation to left great toe with possible wound vac application tomorrow. Hospital Course Summary Disclaimer: The visit summary below is not to be considered part of the above Progress Note. Hospital Course: Impression Diabetic foot ulcer- left great toe Cellulitis-left great toe (wound culture from 12/14/17 reveals staph aureus) Failed outpatient treatment- started on doxycycline 12/20/17 Type II diabetes Hypertension Diabetic neuropathy Morbid obesity-BMI 52 History of osteomyelitis History of cryptococcal pneumonia Plan Initial admission order was placed by the emergency room which was outpatient observation. At time of admission, sepsis, changed inpatient as she does be criteria with diabetic foot ulcer, cellulitis with leukocytosis, failed outpatient treatment. It is expected that her stay will require greater than 2 overnights. Past medical history reviewed. Wound culture was obtained on 12/14/17 that is positive growth for staph aureus Patient was initially started on oral doxycycline. However, erythema and swelling worsened. Start patient on IV vancomycin NS at 100 ML/hr for gentle hydration Monitor Accu-Cheks- Usually takes Metformin and Januvia Monitor blood pressures, continue on home Norvasc, hydrochlorothiazide, metoprolol Lovenox 40 BID for DVT prophylaxis Consultation placed to for wound evaluation. Will place consultation to Dr Kim for further infectious disease recommendations Recheck CBC and BMP recheck tomorrow Will discuss further orders and plan of care with attending, Dr. Hunter At time of discharge medical care will return to primary care provider, Dimitrios
--- NOTE | 2017-12-23 09:49 | Pharmacy Consult-Antibiotics ---
Pharmacy Consult-Vancomycin - Laboratory Information WBC 13.3 T/MM3 (4.5-11.0) H 12/23/17 04:50 BUN 23.0 MG/DL (7-17) H 12/23/17 04:50 Creatinine 1.2 mg/dL (0.7-1.2) D 12/23/17 04:50 Vancomycin Trough 18.39 ug/mL (15-20) 12/23/17 04:50 - Consult Information DAY 3 Vancomycin therapy. Trough today is acceptable. Will continue vancomycin 1750mg IV q12h. Thank you.
[2017-12-23] MEDS: ACETAMINOPHEN 325 MG TABLET PO PRN (09:51)
[2017-12-23] MEDS: ClonazePAM 0.5 MG TABLET PO PRN ×2 (09:51→22:58)
[2017-12-23] MEDS: AMLODIPINE 10 MG TABLET PO SCH (09:51)
[2017-12-23] MEDS: DULOXETINE 30 MG CAPSULE PO SCH (09:51)
[2017-12-23] MEDS: METFORMIN 500 MG TABLET PO SCH (09:52)
[2017-12-23] MEDS: CANAGLIFLOZIN 100mg TABLET PO SCH (09:52)
[2017-12-23] MEDS: ENOXAPARIN 40 MG/0.4 ML INJECTION SQ SCH ×2 (09:52→20:36)
[2017-12-23] MEDS: MELOXICAM 15 MG TABLET PO SCH (09:52)
[2017-12-23] MEDS: FENOFIBRATE 145 MG TABLET PO SCH (09:52)
[2017-12-23] MEDS: SITAGLIPTIN 100 MG TABLET PO SCH (09:53)
[2017-12-23] MEDS: DULOXETINE 60 MG CAPSULE PO SCH (09:53)
[2017-12-23] MEDS: VITAMIN B COMPLEX + C TABLET PO SCH (09:54)
--- NOTE | 2017-12-23 11:21 | Progress Note ---
- Date 12/23/17 Subjective: Ms. Baker is a 57yo female with h/o osteomyelitis of the middle right toe in the past. She has diabetic neuropathy and has poor feeling in her feet. She developed a blister and skin sloughing of the left great toe recently. She has been receiving wound care for approximately 2 weeks. Outpatient wound culture was obtained on 12/14/17 which was positive for staph aureus. She was started on oral doxycycline 12/20/17. On 12/21/17, the swelling and erythema was worse so she presented to the wound care clinic. From there she was directed to present to the emergency room for acute evaluation and treatment. WBC count was found to be slightly elevated at 13, neutrophils 74%. Venous lactate 1.4. Renal function is slightly elevated with a BUN of 24 and creatinine of 1.3, last creatinine was in August 2017 at which it was 1.0, which appears to be her baseline. CRP is slightly elevated at 33.5. Left foot x-ray does not reveal any acute osseous abnormality or concern for osteomyelitis. She was started on IV Vancomycin while in the ER. Due to the worsening symptoms despite outpatient oral antibiotics as well as wound care. It was felt that patient would require more aggressive treatment, the hospital services were contacted and accepted patient for inpatient admission. It is expected that her stay will be greater than 2 overnights. When seen by me this morning she is up cleaning her room. She denies any complaints specifically no fever or chills. She denies shortness of breath, cough or sputum production. She is eating well. She has no nausea or vomiting. Her bowels are moving. No issues with urinating. And no significant pain in her toe. Her MRI did come back showing osteomyelitis. The plan is for her to have surgery with a partial amputation of the left great toe and possible wound VAC placement tomorrow. Objective Vital signs: Temperature 98.6 F 12/23/17 07:53 Pulse Rate 66 12/23/17 07:53 Respiratory Rate 14 12/23/17 07:53 Blood Pressure 130/81 12/23/17 07:53 Pulse Oximetry 96 12/23/17 07:53 Height/Weight/BMI: Height 1.63 m Weight 138.5 kg Body Mass Index 52.2 Comments: Gen: alert and oriented. NAD Skin: warm and dry HEENT: NC/AT PERRL, EOMI, Sclera, lids and conjunctiva wnl. MMM. OP clear. Neck: No JVD, Carotids 2+ without bruits Lungs: clear. No rales, rhonchi or wheezes CV: regular. No murmur, rub or gallop Abd: obese, soft. +BS. NT/ND MS: Good strength and ROM, bilateral great toes wrapped in bandages. The base of the bandage on the left great shows edema and mild erythema. There is mild edema of the dorsal foot. Neuro: No focal deficits Psy: Appropriate mood and affect Results - Labs CBC & Chem 7: 12/23/17 04:50 12/23/17 04:50 Assessment and Plan (1) Diabetic ulcer of toe Current visit: Yes Status: Acute Assessment and Plan: A/P: Diabetic foot ulcer with Cellulitis and evidence of osteomyelitis of the left great toe distal phalanx. -wound culture from 12/14/17 reveals staph aureus, repeat wound cx shows staph aureus and e coli. -Blood cx neg to date -Failed outpatient treatment (started on doxycycline 12/20/17) -orthopedic surgery consulted, plan for partial amputation to left great toe with possible wound vac application tomorrow afternoon -Will continue wound and skin care -patient on vancomycin, start ertrapenem as well Type II diabetes -will continue metformin, Januvia, Canagliflozin and sliding scale insulin as needed -diabetic neuropathy Hypertension -will continue metoprolol succinate, and amlodipine as at home -Hold HCTZ -Adjust for better control Depression -Cymbalta daily and clonazepam PRN dyslipidemia -on fenofibrate obstructive sleep apnea not using a CPAP -overnight oximetry gastroesophageal reflux disease -omeprazole 20 mg daily Morbid obesity-BMI 52 History of osteomyelitis of right 3rd toe resolved w/o surgery Prophylaxis -Lovenox, PPI At time of discharge medical care will return to primary care provider, Dr. Plunkett - Physician Narrative Narrative: Date: 12/23/17 Time: 1118 Hospital Course Summary Disclaimer: The visit summary below is not to be considered part of the above Progress Note. Hospital Course: Impression Diabetic foot ulcer- left great toe Cellulitis-left great toe (wound culture from 12/14/17 reveals staph aureus) Failed outpatient treatment- started on doxycycline 12/20/17 Type II diabetes Hypertension Diabetic neuropathy Morbid obesity-BMI 52 History of osteomyelitis History of cryptococcal pneumonia Plan Initial admission order was placed by the emergency room which was outpatient observation. At time of admission, sepsis, changed inpatient as she does be criteria with diabetic foot ulcer, cellulitis with leukocytosis, failed outpatient treatment. It is expected that her stay will require greater than 2 overnights. Past medical history reviewed. Wound culture was obtained on 12/14/17 that is positive growth for staph aureus Patient was initially started on oral doxycycline. However, erythema and swelling worsened. Start patient on IV vancomycin NS at 100 ML/hr for gentle hydration Monitor Accu-Cheks- Usually takes Metformin and Januvia Monitor blood pressures, continue on home Norvasc, hydrochlorothiazide, metoprolol Lovenox 40 BID for DVT prophylaxis Consultation placed to for wound evaluation. Will place consultation to Dr Kim for further infectious disease recommendations Recheck CBC and BMP recheck tomorrow Will discuss further orders and plan of care with attending, Dr. Hunter At time of discharge medical care will return to primary care provider, Dimitrios
[2017-12-23] MEDS: ERTAPENEM 1 G in NS 100 ML IV SCH (12:42)
[2017-12-24] MEDS: OMEPRAZOLE 20 MG CAPSULE PO SCH (05:30)
--- NOTE | 2017-12-24 08:42 | Orthopedic Progress Note ---
Date: Date: 12/24/17 Time: 837 Subjective/Severity of Illness: Delisa is sitting up on the edge of the bed this morning. Has been NPO since midnight. Planned partial amputation of left great toe with wound vac placement at noon today, for diabetic ulcer with osteomyelitis. She has discussed the surgery with Dr. Jimenez. No further questions or concerns this morning Exam - Constitutional Vital Signs: Temperature 96.3 F L 12/24/17 07:00 Pulse Rate 69 12/24/17 07:00 Respiratory Rate 16 12/24/17 07:00 Blood Pressure 124/77 12/24/17 07:00 Pulse Oximetry 96 12/24/17 07:00 General: cooperative, healthy appearing, no acute distress, well developed, well groomed Nutritional Appearance: well nourished Orientation: alert, oriented x3 - LLE Neurological: no deficits, normal to light touch Vascular: dorsalis pedis pulse within normal limits - Respiratory Respiratory Exam: non-labored - Cardiac Cardiovascular exam: pedal pulses intact - Wound Left Great Toe Type of Wound/Ulcer: Diabetic Ulcer Wound Comments: gauze dressing in place, not removed since going to OR this morning. - Labs Result Diagrams: 12/24/17 05:00 12/24/17 05:00 Abnormal lab results 12/24/17 12/24/17 Range/Units 05:00 05:00 Abs Immat Gran (auto) 0.04 H (0.00-0.03) T/MM3 BUN 24.0 H (7-17) MG/DL Glucose 136 H (65-110) MG/DL H & H 12/22/17 12/23/17 12/24/17 Range/Units 05:16 04:50 05:00 Hgb 14.2 14.6 13.7 (12-16) GM/DL Hct 43.8 44.0 41.3 (36-46) % Orthopedic Assessment and Plan (1) Type 2 diabetes mellitus with unstageable decubitus ulcer of toe Status: Acute Assessment and Plan: Plan on partial amputation to left great toe with possible wound vac application today at noon. Hospital Course Summary Disclaimer: The visit summary below is not to be considered part of the above Progress Note. Hospital Course: Impression Diabetic foot ulcer- left great toe Cellulitis-left great toe (wound culture from 12/14/17 reveals staph aureus) Failed outpatient treatment- started on doxycycline 12/20/17 Type II diabetes Hypertension Diabetic neuropathy Morbid obesity-BMI 52 History of osteomyelitis History of cryptococcal pneumonia Plan Initial admission order was placed by the emergency room which was outpatient observation. At time of admission, sepsis, changed inpatient as she does be criteria with diabetic foot ulcer, cellulitis with leukocytosis, failed outpatient treatment. It is expected that her stay will require greater than 2 overnights. Past medical history reviewed. Wound culture was obtained on 12/14/17 that is positive growth for staph aureus Patient was initially started on oral doxycycline. However, erythema and swelling worsened. Start patient on IV vancomycin NS at 100 ML/hr for gentle hydration Monitor Accu-Cheks- Usually takes Metformin and Januvia Monitor blood pressures, continue on home Norvasc, hydrochlorothiazide, metoprolol Lovenox 40 BID for DVT prophylaxis Consultation placed to for wound evaluation. Will place consultation to Dr Kim for further infectious disease recommendations Recheck CBC and BMP recheck tomorrow Will discuss further orders and plan of care with attending, Dr. Hunter At time of discharge medical care will return to primary care provider, Dimitrios
[2017-12-24] MEDS: CANAGLIFLOZIN 100mg TABLET PO SCH (09:53)
[2017-12-24] MEDS: AMLODIPINE 10 MG TABLET PO SCH (09:53)
[2017-12-24] MEDS: SITAGLIPTIN 100 MG TABLET PO SCH (09:54)
[2017-12-24] MEDS: DULOXETINE 30 MG CAPSULE PO SCH (09:54)
[2017-12-24] MEDS: DULOXETINE 60 MG CAPSULE PO SCH (09:54)
[2017-12-24] MEDS: MELOXICAM 15 MG TABLET PO SCH (09:55)
[2017-12-24] MEDS: VITAMIN B COMPLEX + C TABLET PO SCH (09:55)
[2017-12-24] MEDS: FENOFIBRATE 145 MG TABLET PO SCH (09:55)
[2017-12-24] MEDS: METFORMIN 500 MG TABLET PO SCH (09:56)
[2017-12-24] MEDS: ERTAPENEM 1 G in NS 100 ML IV SCH (09:58)
[2017-12-24] MEDS: NS 1,000 ML IV PRN ×2 (11:29→13:10)
--- NOTE | 2017-12-24 11:46 | Anesthesia Preoperative Report ---
Anesthesia Preoperative Record - Date and Time Date: 12/24/17 Preoperative Diagnosis: Diabetic foot ulcer Proposed Procedure: Left great toe I&D with wound vac NPO Since Date: 12/24/17 NPO Since Time: 00:00 Allergies/Adverse Reactions: Allergies Allergy/AdvReac Type Severity Reaction Status Date / Time ampicillin Allergy HIVES Verified 12/21/17 12:46 kiwi Allergy ANAPHYLACTIC Verified 12/21/17 12:46 SHOCK - Vital Signs Vital Signs: Temperature 97.8 F 12/24/17 10:53 Pulse Rate 70 12/24/17 11:26 Respiratory Rate 15 12/24/17 10:53 Blood Pressure 134/77 12/24/17 10:53 Pulse Oximetry 94 12/24/17 10:53 Height and Weight: Height 1.63 m Weight 138.6 kg Body Mass Index 52.2 - Medications Inpatient Medications: Current Medications Acetaminophen (Tylenol) 325 - 650 mg PO Q5H PRN PRN Reason: Discomfort Last Admin: 12/23/17 09:51 Dose: 650 mg Amlodipine Besylate (Norvasc) 10 mg PO DAILY [facility] Last Admin: 12/24/17 09:53 Dose: 10 mg Canagliflozin (Invokana) 100 mg PO 0730 [facility] Cholecalciferol (Vit. D-3) 1,000 unit PO DAILY [facility] Last Admin: 12/24/17 09:53 Dose: 1,000 unit Clonazepam (Klonopin) 0.5 mg PO BID PRN PRN Reason: Anxiety Last Admin: 12/23/17 22:58 Dose: 0.5 mg Duloxetine HCl (Cymbalta) 60 mg PO DAILY [facility] Last Admin: 12/24/17 09:54 Dose: 60 mg Duloxetine HCl (Cymbalta) 30 mg PO DAILY [facility] Last Admin: 12/24/17 09:54 Dose: 30 mg Fenofibrate (Tricor) 145 mg PO WB [facility] Vancomycin HCl 1,750 mg/ (Sodium Chloride) 500 mls @ 250 mls/hr IV Q12H DEBBIE Last Infusion: 12/24/17 07:19 Dose: Infused Ertapenem 1 g/ Sodium Chloride 100 mls @ 200 mls/hr IV DAILY [facility] Last Infusion: 12/24/17 10:28 Dose: Infused Sodium Chloride (Normal Saline) 1,000 mls @ 75 mls/hr IV .[id number] PRN Last Admin: 12/24/17 11:29 Dose: 75 mls/hr Insulin Aspart (Novolog) 1 - 5 unit SQ SS PRN; Protocol PRN Reason: Hyperglycemia Meloxicam (Mobic) 15 mg PO WB DEBBIE Metformin HCl (Glucophage) 1,000 mg PO WB [facility] Last Admin: 12/24/17 09:56 Dose: 1,000 mg Metoprolol Succinate (Toprol Xl) 100 mg PO DAILY [facility] Last Admin: 12/24/17 09:54 Dose: 100 mg Multivitamins (Total B + C) 1 tab PO DAILY [facility] Last Admin: 12/24/17 09:55 Dose: 1 tab Omeprazole (Prilosec) 20 mg PO ACB [facility] Last Admin: 12/24/17 05:30 Dose: Not Given Sitagliptin Phosphate (Januvia) 50 mg PO DAILY [facility] Last Admin: 12/24/17 09:54 Dose: 50 mg Sodium Chloride (Iv Flush) 10 - 80 ml IVF PRN PRN PRN Reason: Flushing Last Admin: 12/23/17 05:30 Dose: 10 ml Home Medications: Home Medications Medication Instructions Recorded Confirmed Type Duloxetine HCl [Cymbalta] 60 mg PO DAILY #30 10/07/13 12/21/17 History Metoprolol Succinate 100 mg PO DAILY #30 10/07/13 12/21/17 History SUMAtriptan TAB [Imitrex] 100 mg PO DAILY PRN #0 tab 10/07/13 12/21/17 History hydroCHLOROthiazide 25 mg PO DAILY #30 07/16/14 12/21/17 History [Hydrochlorothiazide] Meloxicam [Mobic] 15 mg PO DAILY #0 tab 05/20/15 12/21/17 History Amlodipine [Norvasc] 10 mg PO DAILY 12/21/17 12/21/17 History Canagliflozin [Invokana] 100 mg PO DAILY 12/21/17 12/21/17 History Cholecalciferol (Vitamin D3) 1,000 unit PO DAILY 12/21/17 12/21/17 History [Vitamin D3] ClonazePAM [Klonopin] 0.5 mg PO BID PRN 12/21/17 12/21/17 History Doxycycline Hyclate [Doxycycline 100 mg PO BID 12/21/17 12/21/17 History Hyclate] Duloxetine HCl [Duloxetine HCl] 30 mg PO DAILY 12/21/17 12/21/17 History Fenofibrate Nanocrystallized 145 mg PO DAILY 12/21/17 12/21/17 History [Fenofibrate] Metformin [Glucophage] 1,000 mg PO WB 12/21/17 12/21/17 History Omeprazole Magnesium [Prilosec Otc] 20 mg PO DAILY 12/21/17 12/21/17 History Sitagliptin Phosphate [Januvia] 50 mg PO DAILY 12/21/17 12/21/17 History Vitamin B Complex [Super B-50 1 cap PO DAILY 12/21/17 12/21/17 History Complex] Is Patient on Beta Estelita?: Yes Beta Estelita Last Dose Date/Time: Metoprolol - Medical History Respiratory: Reports: Pneumonia (cryptococcus pneumonia 2016), Sleep Apnea ( DOES NOT USE C-PAP - "BORDERLINE") Cardiovascular: Reports: Hypertension Gastrointestional: Reports: Hiatal Hernia, Morbid Obesity Neuro/Musculoskeletal: Reports: Depression, Other (HX OF MIGRAINES) Denies: Cerebrovascular Accident Renal/Endocrine: Reports: Diabetes Mellitus Type 2 (uncontrolled) DENIES: Thyroid Disease Other History: DENIES: Anesthesia Reactions, Blood Transfusions, Cancer - Surgical History HEENT Surgeries: Reports: Eye Surgery (for glaucoma bilat eyes) DENIES: Tonsillectomy Cardiac Surgeries/Treatments: DENIES: Cardiac Catheterization, Pacemaker GI Surgery/Treatments: Reports: Hernia Repair (2016), Colonoscopy, EGD Musculoskeletal Surgery/Tx: Reports: Knee Arthroscopy (RIGHT KNEE), Other ( RIGHT ANKLE BONESPUR REMOVAL 1976) DENIES: Joint Surgery Reproductive Surgery/Treatment: Reports: Endometrial Ablation DENIES: Mastectomy Anesthesia Reactions: None Hx Family Anesthesia Reaction: No History of Motion Sickness: No - Social History Smoking Status: Light tobacco smoker (occasional cigar smoker) Hx Chewing Tobacco Use: No Second Hand Exposure: No Substance Use Type: does not use Alcohol Intake: current Alcohol Intake Frequency: holidays/special occasions only - Pertinent Findings Laboratory: CBC and BMP 12/24/17 05:00 12/24/17 05:00 BMP 12/24/17 05:00 Sodium 141 Potassium 3.9 Chloride 104 Carbon Dioxide 28 BUN 24.0 H Creatinine 1.2 Glucose 136 H Calcium 9.4 EKG: Sinus Rhythm - Physical Exam Respiratory Exam: Present: lungs clear Cardiovascular Exam: Present: regular rate and rhythm - Airway Assessment Mallampati Score: II TMD: 3 Fingerbreadths Neck Extension: fair Overall Assessment: may be difficult mask vent, may be difficult intubation - ASA ASA Score: 3 - Plan Anesthesia: General TIVA - Discussion Discussion: Discussed risks/options/alternatives of anesthesia and questions answered. Patient consents. Nursing pain assessment noted. Present for Discussion: family member Attestation Statement: Prior to the delivery of any anesthetic medication, I examined the patient, developed the plan, obtained the patient's consent and discussed the risk and benefits of the procedure with the patient/guardian. - Additional Information Seen by Anesthesia: Yes
[2017-12-24] MEDS ORDERED: PROPOFOL 1,000 MG/100 ML VIAL ONE (12:01)
[2017-12-24] MEDS ORDERED: BUPIVACAINE 0.5%/EPI 1:200,000 INJ 30ml SDV ONE (12:04)
--- NOTE | 2017-12-24 12:26 | Anesthesia Procedure Note ---
Peripheral Nerve Blockade - Procedure Physician: Doug Kong MD Date: 12/24/17 Discussion: Discussed risks/options/alternatives of anesthesia and questions answered. Patient consents. Nursing pain assessment noted. Block Start: 12:07 Block Stop: 12:09 Blocked Employed: Ankle/Foot, Single Injection Indication: Post-Operative Pain Approach: Left Side Confirmed Position: Supine Patient: Consent, Risks/Benefits Discussed, Informed, Post Block Act. Discussed IV Sedation: Yes (Propofol induction) Initial Vital Signs: Temperature 98.7 F 12/21/17 12:45 Temperature Source Oral 12/21/17 12:45 Sepsis Recent Fever Within 48 Hours No 12/21/17 12:45 Sepsis Suspicion of Infection Yes 12/21/17 12:45 Sepsis New/Unexplained Change in Mental Status No 12/21/17 12:45 Sepsis Score/Level No Definite Risk 12/21/17 12:45 Sepsis Action Taken by Nursing No Action 12/21/17 12:45 Pulse Rate 81 12/21/17 12:45 Pulse Rhythm 12/21/17 12:45 Pulse Strength Normal 12/21/17 12:45 Respiratory Rate 16 12/21/17 12:45 Respiratory Depth Normal 12/21/17 12:45 Respiratory Pattern 12/21/17 12:45 Blood Pressure 144/92 H 12/21/17 12:45 Blood Pressure Mean 109 12/21/17 12:45 Blood Pressure Position Sitting 12/21/17 12:45 Pulse Oximetry 95 12/21/17 12:45 Oxygen Delivery Method 12/21/17 12:45 Post Vital Signs: Temperature 97.8 F 12/24/17 10:53 Pulse Rate 70 12/24/17 11:26 Respiratory Rate 15 12/24/17 10:53 Blood Pressure 134/77 12/24/17 10:53 Pulse Oximetry 94 12/24/17 10:53 Initial Pain Pain Score: 5 Post Block Pain Score: 0 Prep: Chlorhexadine/ETOH Ultrasound Used?: No - Injectate Bupivacaine (%): 0.5 Bupivacaine (mL): 20 Was Epi 1:200,000 Used?: Yes Injection: Injection made incrementally with constant monitoring and aspiration every ml
--- NOTE | 2017-12-24 12:58 | Anesthesia Postoperative Note ---
- Date and Time Date: 12/24/17 Time: 12:57 - Status Patient Participated in Evaluation: Patient Participated in Person Vital Signs: Temperature 97.8 F 12/24/17 10:53 Pulse Rate 70 12/24/17 11:26 Respiratory Rate 15 12/24/17 10:53 Blood Pressure 134/77 12/24/17 10:53 Pulse Oximetry 94 12/24/17 10:53 Respiratory Function: Airway Patent Cardiovascular Function: Regular Pulse EKG: Sinus Rhythm Mental Status: Lethargic Pain Intensity: 5 Hydration: IV Infusing Complications During Recover: None Apparent - Follow-Up Instructions Instructions: Per Surgeon
[2017-12-24] MEDS ORDERED: MORPHINE SULFATE 10 MG/ML VIAL IVP PRN (13:07)
--- NOTE | 2017-12-24 15:05 | Progress Note ---
- Date 12/24/17 Subjective: Delisa is seen today in follow up following partial amputation of left great toe. She states that she is feeling good currently and hungry to eat. Denies any abdominal pain, nausea. Left foot remains numb from nerve block. Denies having shortness of breath or chest pain. Objective Vital signs: Temperature 96.4 F L 12/24/17 13:51 Pulse Rate 62 12/24/17 14:36 Respiratory Rate 18 12/24/17 14:36 Blood Pressure 156/83 H 12/24/17 14:36 Pulse Oximetry 93 12/24/17 14:36 Height/Weight/BMI: Height 1.63 m Weight 138.6 kg Body Mass Index 52.2 - Constitutional Present: no acute distress, well nourished, well developed - Routine HEENT Exam Eye: Present: EOMI ENT: Present: mucous membranes moist, dentition normal - Routine Respiratory Exam Present: CTA bilaterally. Absent: wheezes - Routine Cardiovascular Exam Present: RRR, S1, S2. Absent: murmur - Routine Abdominal Exam Present: soft, normoactive bowel sounds, non distended. Absent: tenderness - Routine Extremities Exam Comments: Postop shoe and dressing to left foot - Routine Skin Exam Present: intact, dry, warm - Routine Neurological Exam Present: alert, oriented X3, CN II-XII intact, moving all extremities - Routine Lymphatic Exam Lymphatic: Absent: adenopathy - Routine Psychiatric Exam Present: normal affect, cooperative Results - Labs CBC & Chem 7: 12/24/17 05:00 12/24/17 05:00 Microbiology Results: Microbiology 12/24/17 12:22 Toe Second, Left, Bone Gram Stain - Final 12/24/17 12:22 Toe Second, Left, Bone Surgical Culture - Preliminary Culture Initiated - Results Pending 12/24/17 12:24 Toe Second, Left, Bone Gram Stain - Final 12/24/17 12:24 Toe Second, Left, Bone Surgical Culture - Preliminary Culture Initiated - Results Pending Assessment and Plan (1) Diabetic ulcer of toe Current visit: Yes Status: Acute Assessment and Plan: Assessment Diabetic foot ulcer with Cellulitis and evidence of osteomyelitis of the left great toe distal phalanx. Failed outpatient treatment Type II diabetes Hypertension Depression Dyslipidemia Obstructive sleep apnea not using a CPAP Gastroesophageal reflux disease Morbid obesity-BMI 52 Plan Continue on IV Vancomycin and Ertapenem. Vanco dosing as per pharmacy protocol Consult placed for Dr Kim to evaluate and make recommendations of snf treatment wound culture from 12/14/17 reveals staph aureus, repeat wound cx shows staph aureus and e coli. surgical specimen C/S pending Orthopedic management as per Dr Jimenez Overall blood sugars have been well controlled Leukocytosis, improving. CRP trending down Clear liquid diet and advance as tolerated CBC and BMP tomorrow morning DVT Prophylaxis: SCD's, Lovenox Resuscitation Status: Full Code - Time spent with patient Time with patient PN: 25 minutes - Physician Narrative Physician: Doug Kong MD Narrative: Date: 12/24/17 Time: 1899 Have independently interviewed and examined pt. Chart reviewed. Case discussed with my TRACTOR TRAILER OPERATOR. Care plan developed with my supervision; agree with above. Doing well post op. Not having significant pain or discomfort. No nausea or ab pain. Breathing well. Lungs: clear bilaterally CV: regular AB: soft nt/nd EXT: left foot wrapped MSE: awake alert appropriate Plan: Will continue with IV antibiotics. Did discuss with patient about routine foot care for at home - wash feet daily in warm water, dry completely before putting on stocking, inspect feet/toes for any redness/swelling, use lotion if skin becoming dry. Patient very receptive to this. Will continue with diabetic treatments. Monitor lab. Hospital Course Summary Disclaimer: The visit summary below is not to be considered part of the above Progress Note. Hospital Course: Impression Diabetic foot ulcer - left great toe Cellulitis-left great toe (wound culture from 12/14/17 reveals staph aureus) Failed outpatient treatment- started on doxycycline 12/20/17 Type II diabetes Hypertension Diabetic neuropathy Morbid obesity-BMI 52 History of osteomyelitis History of cryptococcal pneumonia 12/21/17 - Admission Initial admission order was placed by the emergency room which was outpatient observation. At time of admission, sepsis, changed inpatient as she does be criteria with diabetic foot ulcer, cellulitis with leukocytosis, failed outpatient treatment. It is expected that her stay will require greater than 2 overnights. Past medical history reviewed. Wound culture was obtained on 12/14/17 that is positive growth for staph aureus Patient was initially started on oral doxycycline. However, erythema and swelling worsened. Start patient on IV vancomycin NS at 100 ML/hr for gentle hydration Monitor Accu-Cheks- Usually takes Metformin and Januvia Monitor blood pressures, continue on home Norvasc, hydrochlorothiazide, metoprolol Lovenox 40 BID for DVT prophylaxis Consultation placed to for wound evaluation. Will place consultation to Dr Kim for further infectious disease recommendations Recheck CBC and BMP recheck tomorrow Will discuss further orders and plan of care with attending, Dr. Hunter At time of discharge medical care will return to primary care provider, Dimitrios 12/23/17 Diabetic foot ulcer with Cellulitis and evidence of osteomyelitis of the left great toe distal phalanx. -wound culture from 12/14/17 reveals staph aureus, repeat wound cx shows staph aureus and e coli. -Blood cx neg to date -Failed outpatient treatment (started on doxycycline 12/20/17) -orthopedic surgery consulted, plan for partial amputation to left great toe with possible wound vac application tomorrow afternoon -Will continue wound and skin care -patient on vancomycin, start ertrapenem as well Type II diabetes -will continue metformin, Januvia, Canagliflozin and sliding scale insulin as needed -diabetic neuropathy Hypertension -will continue metoprolol succinate, and amlodipine as at home -Hold HCTZ -Adjust for better control Depression -Cymbalta daily and clonazepam PRN Dyslipidemia -on fenofibrate Obstructive sleep apnea not using a CPAP -overnight oximetry gastroesophageal reflux disease -omeprazole 20 mg daily 12/24/17 Op Day Continue on IV Vancomycin and Ertapenem. Vanco dosing as per pharmacy protocol Consult placed for Dr Kim to evaluate and make recommendations of snf treatment wound culture from 12/14/17 reveals staph aureus, repeat wound cx shows staph aureus and e coli. surgical specimen C/S pending Orthopedic management as per Dr Jimenez Overall blood sugars have been well controlled Leukocytosis, improving. CRP trending down Clear liquid diet and advance as tolerated CBC and BMP tomorrow morning
--- NOTE | 2017-12-24 15:29 | Wound Care Progress Note ---
Wound Center Progress Note: Pt seen for wound consultation r/t diabetic wound to L great toe. According to Laine AGUILAR, pt was in surgery with Dr. Jimenez for amputation of L great toe. Pt not seen at this time. Will f/u PRN.
[2017-12-25] MEDS: ACETAMINOPHEN 325 MG TABLET PO PRN ×4 (00:32→19:41)
[2017-12-25] MEDS: OMEPRAZOLE 20 MG CAPSULE PO SCH (05:54)
[2017-12-25] MEDS: NS 1,000 ML IV PRN (06:14)
--- NOTE | 2017-12-25 07:51 | Operative Note ---
DATE OF PROCEDURE 12/24/2017 PREOPERATIVE DIAGNOSIS Left great toe diabetic foot ulcer with osteomyelitis. POSTOPERATIVE DIAGNOSIS Left great toe diabetic foot ulcer with osteomyelitis. PROCEDURE Left great toe partial amputation. SURGEON Blayne Jimenez MD ANESTHESIA TIVA with ankle block. EBL AND FLUIDS Please see Anesthetic Record. DESCRIPTION OF PROCEDURE Mrs. Baker and her left toe were identified and marked in the preoperative holding area. She was brought back to the operating suite and placed supine on the operating table. A general anesthetic was administered as well as an ankle block. The left lower extremity was then prepped and draped in my normal sterile fashion. Time-out was performed. The patient was on scheduled antibiotics. Her ulceration was plantarly at the tip of the great toe. There was skin proximally. Once this skin was removed, it showed that the ulceration was actually quite a bit larger and did penetrate down to bone. There was necrotic subcutaneous tissue within the wound down to bone. This was removed sharply. At this point a circumferential incision was made just proximal to the base of the nail plate down to bone. The soft tissue was dissected from the bone proximally up to the interphalangeal joint. The capsule was then incised as well as the collateral ligaments and the distal phalanx and surrounding tissue was removed and placed on the back table. I did send some of the earlier necrotic tissue for culture. There was no obvious necrosis to the remaining soft tissue, including the proximal phalanx. The wound was thoroughly irrigated with normal saline. I then irrigated with a half-liter of Aricept solution. There was some minimal bleeding but nothing that needed to be cauterized. The skin edges were then brought back together using simple and horizontal mattress interrupted sutures, bringing the skin edges back together nicely. A sterile dressing was then placed. The drapes were removed. The patient was allowed to awaken from general anesthesia and then taken to the recovery room under the care of Anesthesia. She tolerated the procedure well. There were no complications. KEYUR
--- NOTE | 2017-12-25 08:14 | Orthopedic Progress Note ---
Date: Date: 12/25/17 Time: 810 Subjective/Severity of Illness: Delisa is lying in bed this morning when I visit. Has been up ambulating with post op shoe, pain has been well controlled with Tylenol. Denies any fevers, chills, body aches, nausea, CP, SOA. Gram stain from left great toe wound: E. Coli, Staph Aureus, Enterococcus faecalis. Gm stain from left great toe bone biopsy: few gm pos cocci Sensitivity pending. Blood cultures negative. WBC 12.3 from 10.4 yesterday. Orthopedic Exam Vital signs: Temperature 97.8 F 12/25/17 07:58 Pulse Rate 63 12/25/17 07:58 Respiratory Rate 18 12/25/17 07:58 Blood Pressure 142/75 H 12/25/17 07:58 Pulse Oximetry 96 12/25/17 07:58 - Constitutional General Appearance: Present: alert, orientated x3, well developed, well nourished - Respiratory Exam Present: non-labored - Cardiovascular Exam Present: pedal pulses intact - Extremities Exam Present: pulses intact, normal capillary refill. Absent: calf tenderness, Amilcar 's sign - Dressing Dressing: dry, intact, no drainage Comments: xeroform and qauze to left great toe- no drainage. - Integumentary Exam Present: pink, warm - Lymphatic Lymphatic: Present: adenopathy - Neurological Exam Present: intact to light touch, no deficits - Psychiatric Exam Present: alert, oriented, normal affect - Labs Result Diagrams: 12/25/17 05:12 12/25/17 05:12 Abnormal lab results 12/25/17 12/25/17 Range/Units 05:12 05:12 WBC 12.3 H (4.5-11.0) T/MM3 Neut % (Auto) 71.0 H (33-66) % Lymph % (Auto) 18.4 L (23-45) % Neut # (Auto) 8.7 H (1.8-7.7) T/MM3 BUN 18.0 H (7-17) MG/DL Glucose 112 H (65-110) MG/DL H & H 12/22/17 12/23/17 12/24/17 Range/Units 05:16 04:50 05:00 Hgb 14.2 14.6 13.7 (12-16) GM/DL Hct 43.8 44.0 41.3 (36-46) % 12/25/17 Range/Units 05:12 Hgb 13.5 (12-16) GM/DL Hct 41.9 (36-46) % Orthopedic Assessment and Plan (1) Type 2 diabetes mellitus with unstageable decubitus ulcer of toe Status: Acute Assessment and Plan: Gm stain from wound: E. coli, staph aureus, enterococcus faecalis Gm stain bone: few gram pos cocci Sensitivities pending, antibiotic management per hospitalist Continue WBAT with post op shoe. Dressing changes prn. SCDs for DVT prophylaxis. Hospital Course Summary Disclaimer: The visit summary below is not to be considered part of the above Progress Note. Hospital Course: Impression Diabetic foot ulcer - left great toe Cellulitis-left great toe (wound culture from 12/14/17 reveals staph aureus) Failed outpatient treatment- started on doxycycline 12/20/17 Type II diabetes Hypertension Diabetic neuropathy Morbid obesity-BMI 52 History of osteomyelitis History of cryptococcal pneumonia 12/21/17 - Admission Initial admission order was placed by the emergency room which was outpatient observation. At time of admission, sepsis, changed inpatient as she does be criteria with diabetic foot ulcer, cellulitis with leukocytosis, failed outpatient treatment. It is expected that her stay will require greater than 2 overnights. Past medical history reviewed. Wound culture was obtained on 12/14/17 that is positive growth for staph aureus Patient was initially started on oral doxycycline. However, erythema and swelling worsened. Start patient on IV vancomycin NS at 100 ML/hr for gentle hydration Monitor Accu-Cheks- Usually takes Metformin and Januvia Monitor blood pressures, continue on home Norvasc, hydrochlorothiazide, metoprolol Lovenox 40 BID for DVT prophylaxis Consultation placed to for wound evaluation. Will place consultation to Dr Kim for further infectious disease recommendations Recheck CBC and BMP recheck tomorrow Will discuss further orders and plan of care with attending, Dr. Hunter At time of discharge medical care will return to primary care provider, Dimitrios 12/23/17 Diabetic foot ulcer with Cellulitis and evidence of osteomyelitis of the left great toe distal phalanx. -wound culture from 12/14/17 reveals staph aureus, repeat wound cx shows staph aureus and e coli. -Blood cx neg to date -Failed outpatient treatment (started on doxycycline 12/20/17) -orthopedic surgery consulted, plan for partial amputation to left great toe with possible wound vac application tomorrow afternoon -Will continue wound and skin care -patient on vancomycin, start ertrapenem as well Type II diabetes -will continue metformin, Januvia, Canagliflozin and sliding scale insulin as needed -diabetic neuropathy Hypertension -will continue metoprolol succinate, and amlodipine as at home -Hold HCTZ -Adjust for better control Depression -Cymbalta daily and clonazepam PRN Dyslipidemia -on fenofibrate Obstructive sleep apnea not using a CPAP -overnight oximetry gastroesophageal reflux disease -omeprazole 20 mg daily 12/24/17 Op Day Continue on IV Vancomycin and Ertapenem. Vanco dosing as per pharmacy protocol Consult placed for Dr Kim to evaluate and make recommendations of shelter treatment wound culture from 12/14/17 reveals staph aureus, repeat wound cx shows staph aureus and e coli. surgical specimen C/S pending Orthopedic management as per Dr Jimenez Overall blood sugars have been well controlled Leukocytosis, improving. CRP trending down Clear liquid diet and advance as tolerated CBC and BMP tomorrow morning
[2017-12-25] MEDS: METFORMIN 500 MG TABLET PO SCH (08:33)
[2017-12-25] MEDS: DULOXETINE 60 MG CAPSULE PO SCH (08:33)
[2017-12-25] MEDS: FENOFIBRATE 145 MG TABLET PO SCH (08:33)
[2017-12-25] MEDS: AMLODIPINE 10 MG TABLET PO SCH (08:34)
[2017-12-25] MEDS: DULOXETINE 30 MG CAPSULE PO SCH (08:34)
[2017-12-25] MEDS: VITAMIN B COMPLEX + C TABLET PO SCH (08:34)
[2017-12-25] MEDS: SITAGLIPTIN 100 MG TABLET PO SCH (08:34)
[2017-12-25] MEDS: MELOXICAM 15 MG TABLET PO SCH (08:34)
[2017-12-25] MEDS: CANAGLIFLOZIN 100mg TABLET PO SCH (08:35)
[2017-12-25] MEDS: ERTAPENEM 1 G in NS 100 ML IV SCH (08:37)
--- NOTE | 2017-12-25 08:43 | Progress Note ---
- Date 12/25/17 Subjective: F/U: POD #1 - S/P left great toe amputuation secondary to diabetic foot ulceration and cellulitis. Delisa is seen this morning while resting in bed with nursing at the bedside. She reports that she is feeling good and states that her pain is well controlled with the Tylenol, currently 3/10. She denies any other complaints or concerns. No chest pain, shortness of breath, abdominal pain, nausea, vomiting or dysuria. Her appetite remains stable and bowels are moving. Nursing reports that she has been up and ambulating well with her post-op shoe. Labs revealed slight increase in WBC (12.3) and otherwise unremarkable. Blood sugars have been well controlled. Wound culture revealed E. coli, Staph aureus, enterococcus faecalis and other abeba. Blood cultures remain negative and she remains afebrile. Objective Vital signs: Temperature 97.8 F 12/25/17 07:58 Pulse Rate 63 12/25/17 07:58 Respiratory Rate 18 12/25/17 07:58 Blood Pressure 142/75 H 12/25/17 07:58 Pulse Oximetry 96 12/25/17 07:58 Height/Weight/BMI: Height 5 ft 4 in Weight 304 lb 3.806 oz Body Mass Index 52.2 Comments: resting in bed with nursing at bedside. Moves easily without signs of distress. - Constitutional Present: no acute distress, well nourished, well developed, morbidly obese, cooperative - Routine HEENT Exam Head: Present: normocephalic, atraumatic Eye: Present: PERRL. Absent: conjunctival icterus ENT: Present: mucous membranes moist, oropharynx clear - Routine Respiratory Exam Present: CTA bilaterally. Absent: respiratory distress, wheezes - Routine Cardiovascular Exam Present: RRR, S1, S2, no murmur - Routine Abdominal Exam Present: soft, normoactive bowel sounds, non tender Comments: Obese. - Routine Extremities Exam Present: edema (trace), full ROM, pulses intact. Absent: calf tenderness Comments: Bandage to left foot intact, clean and dry with post-op shoe present. - Routine Back/Spine/Pelvis Exam Back/Spine: Present: full ROM. Absent: vertebral tenderness - Routine Musculoskeletal Exam Musculoskeletal: Present: no clubbing or cyanosis, moving extremities well - Routine Skin Exam Present: dry, warm Comments: Afebrile. - Routine Neurological Exam Present: alert, oriented X3, moving all extremities, hearing grossly intact, normal speech - Routine Lymphatic Exam Lymphatic: Absent: lymphedema - Routine Psychiatric Exam Present: normal affect, cooperative, good insight, good judgment Results - Labs CBC & Chem 7: 12/25/17 05:12 12/25/17 05:12 Microbiology Results: Microbiology 12/24/17 12:22 Toe Second, Left, Bone Gram Stain - Final 12/24/17 12:22 Toe Second, Left, Bone Surgical Culture - Preliminary Culture Initiated - Results Pending 12/24/17 12:24 Toe Second, Left, Bone Gram Stain - Final 12/24/17 12:24 Toe Second, Left, Bone Surgical Culture - Preliminary Culture Initiated - Results Pending Assessment and Plan (1) Status post amputation of great toe Problem details: 12/24/17 - Dr. Jimenez; left great toe. Current visit: Yes Status: Acute (2) Diabetic ulcer of toe Current visit: Yes Status: Acute Assessment and Plan: Assessment S/P left great toe amputation, Dr. Jimenez - 12/24/17. Diabetic foot ulcer with Cellulitis and evidence of osteomyelitis of the left great toe distal phalanx. Failed outpatient treatment Type II diabetes Hypertension Depression Dyslipidemia Obstructive sleep apnea not using a CPAP Gastroesophageal reflux disease Morbid obesity-BMI 52 Plan - 12/25/17: Overall, patient is doing well. Wound cultures revealed E.coli, Staph aureus, enterococcus faecalis and other abeba - Staph aureus resistant to erythromycin, otherwise all pansensitive. Continue on IV Vancomycin and Ertapenem. Vanco dosing as per pharmacy protocol. Consult placed for Dr Kim to evaluate and make recommendations of long-term treatment. Orthopedic management as per Dr Jimenez. Pain well controlled with Tylenol. Overall blood sugars have been well controlled. Continue to monitor closely. Slight increase in WBC (12.3) - suspect stress reaction following surgery. Will continue to monitor closely. Patient remains afebrile. Diet advanced successfully. Bowel motivation. Will discontinue IV fluids as oral intake is good. CBC and BMP tomorrow morning to monitor blood counts, electrolytes and renal function. Anticipate discharge in near future. DVT Prophylaxis: SCD's Resuscitation Status: Full Code - Time spent with patient Time with patient PN: 25 minutes - Physician Narrative Physician: Doug Kong MD Narrative: Date: 12/25/17 Time: 1650 Have independently interviewed and examined pt. Chart reviewed. Case discussed with my PA. Care plan developed with my supervision; agree with above. Doing well today. Notes some discomfort to foot, but nothing severe. Pain medications are helpful. No f/c. Breathing well. Eating well. No ab pain or nausea. Denies stomatitis. Bowels stable. Urinating well. Lungs: clear CV: regular AB: soft nt/nd MSE: awake alert appropriate Plan: Will continue with antibiotics. D/C IVF. With BP showing elevation and pt with DM, discussed about use of PAVITHRA inhibitor - discussed benefits and side effects. Patient agreeable. Will start lisinopril 10mg at night. Monitor lab. Continue with supportive care. Hospital Course Summary Disclaimer: The visit summary below is not to be considered part of the above Progress Note. Hospital Course: Impression Diabetic foot ulcer - left great toe Cellulitis-left great toe (wound culture from 12/14/17 reveals staph aureus) Failed outpatient treatment- started on doxycycline 12/20/17 Type II diabetes Hypertension Diabetic neuropathy Morbid obesity-BMI 52 History of osteomyelitis History of cryptococcal pneumonia 12/21/17 - Admission Initial admission order was placed by the emergency room which was outpatient observation. At time of admission, sepsis, changed inpatient as she does be criteria with diabetic foot ulcer, cellulitis with leukocytosis, failed outpatient treatment. It is expected that her stay will require greater than 2 overnights. Past medical history reviewed. Wound culture was obtained on 12/14/17 that is positive growth for staph aureus Patient was initially started on oral doxycycline. However, erythema and swelling worsened. Start patient on IV vancomycin NS at 100 ML/hr for gentle hydration Monitor Accu-Cheks- Usually takes Metformin and Januvia Monitor blood pressures, continue on home Norvasc, hydrochlorothiazide, metoprolol Lovenox 40 BID for DVT prophylaxis Consultation placed to for wound evaluation. Will place consultation to Dr Kim for further infectious disease recommendations Recheck CBC and BMP recheck tomorrow Will discuss further orders and plan of care with attending, Dr. Hunter At time of discharge medical care will return to primary care provider, Dimitrios 12/23/17 Diabetic foot ulcer with Cellulitis and evidence of osteomyelitis of the left great toe distal phalanx. -wound culture from 12/14/17 reveals staph aureus, repeat wound cx shows staph aureus and e coli. -Blood cx neg to date -Failed outpatient treatment (started on doxycycline 12/20/17) -orthopedic surgery consulted, plan for partial amputation to left great toe with possible wound vac application tomorrow afternoon -Will continue wound and skin care -patient on vancomycin, start ertrapenem as well Type II diabetes -will continue metformin, Januvia, Canagliflozin and sliding scale insulin as needed -diabetic neuropathy Hypertension -will continue metoprolol succinate, and amlodipine as at home -Hold HCTZ -Adjust for better control Depression -Cymbalta daily and clonazepam PRN Dyslipidemia -on fenofibrate Obstructive sleep apnea not using a CPAP -overnight oximetry gastroesophageal reflux disease -omeprazole 20 mg daily 12/24/17 Op Day Continue on IV Vancomycin and Ertapenem. Vanco dosing as per pharmacy protocol Consult placed for Dr Kim to evaluate and make recommendations of fdc treatment wound culture from 12/14/17 reveals staph aureus, repeat wound cx shows staph aureus and e coli. surgical specimen C/S pending Orthopedic management as per Dr Jimenez Overall blood sugars have been well controlled Leukocytosis, improving. CRP trending down Clear liquid diet and advance as tolerated CBC and BMP tomorrow morning 12/25/17 POD #1 Overall, patient is doing well. Wound cultures revealed E.coli, Staph aureus, enterococcus faecalis and other abeba - Staph aureus resistant to erythromycin, otherwise all pansensitive. Continue on IV Vancomycin and Ertapenem. Vanco dosing as per pharmacy protocol. Consult placed for Dr Kim to evaluate and make recommendations of long-term treatment. Orthopedic management as per Dr Jimenez. Pain well controlled with Tylenol. Overall blood sugars have been well controlled. Continue to monitor closely. Slight increase in WBC (12.3) - suspect stress reaction following surgery. Will continue to monitor closely. Patient remains afebrile. Diet advanced successfully. Bowel motivation. Will discontinue IV fluids as oral intake is good. Start lisinopril 10mg nightly to help BP and provide renal protection due to DM. CBC and BMP tomorrow morning to monitor blood counts, electrolytes and renal function. Anticipate discharge in near future.
[2017-12-25] MEDS ORDERED: SENNA + DOCUSATE TABLET PO PRN (08:50)
[2017-12-25] MEDS: POLYETHYL GLYCOL 3350 17gm PACKET PO SCH (13:47)
[2017-12-25] MEDS: LISINOPRIL 10 MG TABLET PO SCH (20:32)
[2017-12-26] MEDS: SALINE FLUSH 10ml SYRINGE IVF PRN (05:35)
[2017-12-26] MEDS: OMEPRAZOLE 20 MG CAPSULE PO SCH (06:00)
[2017-12-26] MEDS: CANAGLIFLOZIN 100mg TABLET PO SCH (08:07)
[2017-12-26] MEDS: METFORMIN 500 MG TABLET PO SCH (08:07)
[2017-12-26] MEDS: FENOFIBRATE 145 MG TABLET PO SCH (08:07)
[2017-12-26] MEDS: DULOXETINE 60 MG CAPSULE PO SCH (08:08)
[2017-12-26] MEDS: MELOXICAM 15 MG TABLET PO SCH (08:08)
[2017-12-26] MEDS: DULOXETINE 30 MG CAPSULE PO SCH (08:08)
[2017-12-26] MEDS: SITAGLIPTIN 100 MG TABLET PO SCH (08:08)
[2017-12-26] MEDS: AMLODIPINE 10 MG TABLET PO SCH (08:09)
[2017-12-26] MEDS: VITAMIN B COMPLEX + C TABLET PO SCH (08:09)
[2017-12-26] MEDS: ERTAPENEM 1 G in NS 100 ML IV SCH (08:09)
[2017-12-26] MEDS: POLYETHYL GLYCOL 3350 17gm PACKET PO SCH (08:10)
[2017-12-26] MEDS: ACETAMINOPHEN 325 MG TABLET PO PRN ×2 (08:14→15:37)
--- NOTE | 2017-12-26 09:06 | Infectious Disease Consult ---
Infectious Disease Consult Date of Consultation: 12/26/17 Requesting Physician: Doug Kong Reason for Consultation: antibiotic recs History of Present Illness: Ms. Baker is a 57 y/o diabetic woman known to me from prior visits. She has a h/o wounds on her 3rd toes bilaterally, and I treated her for osteomyelitis in the R 3rd toe with IV antibiotics. This healed. She reports that about 1-2 weeks ago, she developed redness and swelling involving her L great toe. She denies any antecedent trauma. She was seen in the wound clinic for this. She had a wound culture obtained on 12/14 and it grew MSSA. She was started on doxycycline on 12/20. She noted increasing redness and says that her toe looked "terrible." She showed photos of this to a wound clinic RN, who recommended she go the the ED. She went there on 12/21 and was admitted for further evaluation. WBC count was found to be slightly elevated at 13, neutrophils 74%. Venous lactate was 1.4. Creatinine was 1.3. CRP was slightly elevated at 33.5. Left foot x-ray did not reveal any acute osseous abnormality or concern for osteomyelitis. She had an MRI which showed osteomyelitis of the great toe distal phalanx. Wound culture obtained on admission 12/21 grew MSSA, E. coli, and E. faecalis. She's been started on Vancomycin and Invanz. She underwent L great toe partial amputation by Dr. Jimenez 12/24. Path is pending. Two surgical cultures were obtained. One is growing MRSA and E. coli. The other has S. lugdunensis and GNR. Medications Home Medications Medication Instructions Recorded Confirmed Type Duloxetine HCl [Cymbalta] 60 mg PO DAILY #30 10/07/13 12/21/17 History Metoprolol Succinate 100 mg PO DAILY #30 10/07/13 12/21/17 History SUMAtriptan TAB [Imitrex] 100 mg PO DAILY PRN #0 tab 10/07/13 12/21/17 History hydroCHLOROthiazide 25 mg PO DAILY #30 07/16/14 12/21/17 History [Hydrochlorothiazide] Meloxicam [Mobic] 15 mg PO DAILY #0 tab 05/20/15 12/21/17 History Amlodipine [Norvasc] 10 mg PO DAILY 12/21/17 12/21/17 History Canagliflozin [Invokana] 100 mg PO DAILY 12/21/17 12/21/17 History Cholecalciferol (Vitamin D3) 1,000 unit PO DAILY 12/21/17 12/21/17 History [Vitamin D3] ClonazePAM [Klonopin] 0.5 mg PO BID PRN 12/21/17 12/21/17 History Doxycycline Hyclate [Doxycycline 100 mg PO BID 12/21/17 12/21/17 History Hyclate] Duloxetine HCl [Duloxetine HCl] 30 mg PO DAILY 12/21/17 12/21/17 History Fenofibrate Nanocrystallized 145 mg PO DAILY 12/21/17 12/21/17 History [Fenofibrate] Metformin [Glucophage] 1,000 mg PO WB 12/21/17 12/21/17 History Omeprazole Magnesium [Prilosec Otc] 20 mg PO DAILY 12/21/17 12/21/17 History Sitagliptin Phosphate [Januvia] 50 mg PO DAILY 12/21/17 12/21/17 History Vitamin B Complex [Super B-50 1 cap PO DAILY 12/21/17 12/21/17 History Complex] Allergies Allergy/AdvReac Type Severity Reaction Status Date / Time ampicillin Allergy HIVES Verified 12/21/17 12:46 kiwi Allergy ANAPHYLACTIC Verified 12/21/17 12:46 SHOCK [facility] Patient Stated Medical History Cerebrovascular Accident No Glaucoma Yes Hypertension Yes Pneumonia Yes: cryptococcus pneumonia 2016 Sleep Apnea Yes: DOES NOT USE C-PAP - "BORDERLINE" Diabetes Mellitus Type 2 Yes: uncontrolled Hiatal Hernia Yes Other Yes: KIDNEY INFECTIONS WHEN YOUNGER Anemia Yes: none since endometrial ablation Osteoarthritis Yes: bilat knees Other Musculoskeletal Yes: HX OF MIGRAINES Anesthesia Reactions No Blood Transfusions No Depression Yes Post Menopausal Yes: [facility] Medical History (Last Reviewed 10/13/17 @ 12:03 by ALMA Zaidi ) Diabetic ulcer of right foot (Acute Medical) GERD (gastroesophageal reflux disease) (Chronic Medical) Type 2 diabetes mellitus (Chronic Medical) Migraine headache (Chronic Medical) Plantar fasciitis of left foot (Chronic Medical) Depression (Chronic Medical) Anxiety (Chronic Medical) ETIENNE treated with BiPAP (Chronic Medical) Renal dysfunction (Inactive Medical) Osteoarthritis (Chronic Medical) External hemorrhoid (Chronic Medical) Esophageal stricture (Chronic Medical) Glaucoma (Chronic Medical) Adie's pupil (Chronic Medical) LT Hypercholesterolemia (Chronic Medical) Hypertension (Chronic Medical) Cryptococcal pneumonitis (Resolved Medical) Epigastric hernia (Resolved Medical) Irregular menses (Resolved Medical) Resolved with uterine ablation Benign breast lesion Medical History Updates: Hx osteomyelitis of right foot 3rd toe Surgical History: R breast biopsy 2018. * E[place] - 05/20/[address] [place] [facility] [place] * Uterine ablation - 07/17/[address] [place] [facility] [place] * Open ventral hernia repair with mesh - 10/13/[address] [place] [facility] [place] She did have a 3.5 cm fascial defect in the epigastric region. An 11.[address] hernia patch was placed. * Colonoscopy with excisional hemorrhoidectomy of anterior external hemorrhoid [place] [facility] [place] Colonoscopy was normal. * Excision of left great toenail - [address] Harvey in [place], [place]. * Right knee scope - 2005 Dr. Arreola [place] [facility] [place]. * Bone spur removed right ankle - 1974 in [place], [place]. Family History: Family History (Last Reviewed 10/13/17 @ 12:03 by Eva Choudhury [facility]) Mother Colon polyps High blood pressure Hypercholesterolemia Heart disease Kidney disease Diabetes Arthritis Liver disease Father ETIENNE (obstructive sleep apnea) Colon polyps High blood pressure Hypercholesterolemia Heart disease Diabetes Arthritis Liver disease Maternal Grandmother High blood pressure Diabetes Maternal Grandfather Heart attack Paternal Grandmother Cancer of breast Diabetes Sister Diabetes Sister ETIENNE (obstructive sleep apnea) Maternal Aunt Diabetes - Social History Smoking status: Never smoker second hand exposure: No Substance use type: does not use Alcohol intake: current Alcohol intake frequency: holidays/special occasions only Housing: house Household members: none Current occupational status: unemployed Current occupation: Stamp [employer] Does patient use chewing tobacco?: No Review of Systems All systems PM: 10-point ROS was reviewed, no additional remarkable complaints except - Constitutional Constitutional: Absent: chills, fever(s), headache(s) - EENMT Eyes: Absent: change in vision - Cardiovascular Cardiovascular: Absent: chest pain - Respiratory Respiratory: Absent: cough, dyspnea - Gastrointestinal Gastrointestinal: Absent: diarrhea, nausea, vomiting - Genitourinary Genitourinary: Absent: dysuria - Integumentary/Breasts Integumentary: Absent: rash Integumentary Comments: wound L great toe - Neurological Neurological: Absent: headache(s) Exam Vital Signs: Temperature 95.9 F L 12/26/17 08:16 Pulse Rate 61 12/26/17 08:16 Respiratory Rate 16 12/26/17 08:16 Blood Pressure 150/86 H 12/26/17 08:16 Pulse Oximetry 96 12/26/17 08:16 Height/Weight/BMI: Height 1.63 m Weight 139.3 kg Body Mass Index 52.2 - Constitutional Present: no acute distress, well nourished, well developed - Routine HEENT Exam Head: Present: normocephalic, atraumatic Eye: Present: EOMI, PERRL ENT: Present: mucous membranes moist, oropharynx clear - Routine Neck Exam Present: supple - Routine Respiratory Exam Present: CTA bilaterally - Routine Cardiovascular Exam Present: RRR - Routine Abdominal Exam Present: soft, normoactive bowel sounds, non distended, non tender - Routine Extremities Exam Absent: cyanosis, clubbing, edema - Routine Skin Exam Absent: rash Comments: L great toe wound covered with dressing - Routine Neurological Exam Present: alert, oriented X3, CN II-XII intact, normal speech. Absent: motor deficit - Routine Psychiatric Exam Present: normal affect, normal thought process Results - Labs CBC & Chem 7: 12/26/17 04:12 12/26/17 04:12 Microbiology Results: Microbiology 12/24/17 12:22 Toe Second, Left, Bone Gram Stain - Final 12/24/17 12:22 Toe Second, Left, Bone Surgical Culture - Preliminary Staphylococcus aureus, MRSA Escherichia coli 12/24/17 12:24 Toe Second, Left, Bone Gram Stain - Final 12/24/17 12:24 Toe Second, Left, Bone Surgical Culture - Preliminary Gram Positive Cocci Gram Negative Zak Impression: Acute osteomyelitis L great toe, s/p partial amputation 12/24/17. Surgical culture with MRSA and E. coli (suresh-sensitive). Path pending. Superficial wound culture with MSSA, E. faecalis, E. coli. Type II diabetes, not IR Hypertension Diabetic neuropathy Morbid obesity-BMI 52 History of osteomyelitis R 3rd toe History of cryptococcal pneumonia Recommendation: Recommend continuing Vancomycin and changing Invanz to ceftriaxone 2gm IV daily. Her IV is going bad. I'd recommend a PICC line. If her pathology margins are negative for osteomyelitis, then she could potentially be changed to oral antibiotics. Await final surgical cultures and Path.
--- NOTE | 2017-12-26 09:35 | Progress Note ---
- Date 12/26/17 Subjective: F/U: POD #2 - S/P left great toe amputation secondary to diabetic foot ulceration and cellulitis. Delisa is seen this morning while sitting up in bed in conjunction with Dr. Kim. She is more tearful this morning, expressing concern about her prognosis. Education and reassurance provided. Surgical wound cultures revealed MRSA and E.Coli. Plan to place a PICC line today given possibility of prolonged antibiotic course. Leukocytosis resolved (WBC 10.7). She remains afebrile. Appetite is stable and bowels are moving. Slight increase in CRP to 20.5 (up from 11.7 on 12/23/17). Blood sugars controlled. Objective Vital signs: Temperature 95.9 F L 12/26/17 08:16 Pulse Rate 61 12/26/17 08:16 Respiratory Rate 16 12/26/17 08:16 Blood Pressure 150/86 H 12/26/17 08:16 Pulse Oximetry 96 12/26/17 08:16 Height/Weight/BMI: Height 5 ft 4 in Weight 307 lb 1.663 oz Body Mass Index 52.2 Comments: Sitting up in bed; patient seen in conjunction with Dr. Kim. - Constitutional Present: no acute distress, well nourished, well developed, cooperative Comments: Tearful on exam. - Routine HEENT Exam Head: Present: normocephalic, atraumatic Eye: Present: PERRL. Absent: conjunctival icterus ENT: Present: mucous membranes moist, oropharynx clear - Routine Respiratory Exam Present: CTA bilaterally. Absent: respiratory distress, wheezes - Routine Cardiovascular Exam Present: RRR, S1, S2 - Routine Abdominal Exam Present: soft, normoactive bowel sounds, non distended, non tender - Routine Extremities Exam Present: no edema, full ROM, pulses intact - Routine Back/Spine/Pelvis Exam Back/Spine: Present: full ROM. Absent: vertebral tenderness - Routine Musculoskeletal Exam Musculoskeletal: Present: moving extremities well - Routine Skin Exam Present: dry, warm Comments: Afebrile; wound dressing not removed on exam. - Routine Neurological Exam Present: alert, oriented X3, moving all extremities, hearing grossly intact, normal speech - Routine Lymphatic Exam Lymphatic: Absent: lymphedema - Routine Psychiatric Exam Present: normal affect, cooperative Comments: Tearful. Results - Labs CBC & Chem 7: 12/26/17 04:12 12/26/17 04:12 Microbiology Results: Microbiology 12/24/17 12:22 Toe Second, Left, Bone Gram Stain - Final 12/24/17 12:22 Toe Second, Left, Bone Surgical Culture - Preliminary Staphylococcus aureus, MRSA Escherichia coli 12/24/17 12:24 Toe Second, Left, Bone Gram Stain - Final 12/24/17 12:24 Toe Second, Left, Bone Surgical Culture - Preliminary Gram Positive Cocci Gram Negative Zak Assessment and Plan (1) Diabetic ulcer of toe Current visit: Yes Status: Acute (2) Status post amputation of great toe Problem details: 12/24/17 - Dr. Jimenez; left great toe. Current visit: Yes Status: Acute Assessment and Plan: Assessment Diabetic foot ulcer with Cellulitis and evidence of osteomyelitis of the left great toe distal phalanx. Failed outpatient treatment S/P left great toe amputation, Dr. Jimenez - 12/24/17 Type II diabetes Hypertension Depression Dyslipidemia Obstructive sleep apnea not using a CPAP Gastroesophageal reflux disease Morbid obesity - BMI 52 Plan Overall, patient is doing well. Wound cultures revealed E.coli and MRSA. Continue on IV Vancomycin and Ertapenem. Vanco dosing as per pharmacy protocol. Patient seen by Dr. Kim this morning. Awaiting culture sensitivities and bone pathology to determine antibiotics and treatment duration. Will place PICC line today in anticipation of prolonged treatments. Continue orthopedic management as per Dr Jimenez. Pain well controlled with Tylenol. Overall blood sugars have been well controlled. Continue to monitor closely. Leukocytosis resolved. Continue to monitor closely. Remains afebrile. CBC and BMP tomorrow morning to monitor blood counts, electrolytes and renal function. Anticipate discharge in near future. Monitor closely for signs of depression. Luann Kim recommending changeing Ertapenem to Rocephin 2 Grams IV daily. Will add Nozin due to MRSA. DVT Prophylaxis: SCD's Resuscitation Status: Full Code - Time spent with patient Time with patient PN: 35 minutes Coordination of Care: >50% of visit spent providing counseling/coordination of care - Physician Narrative Physician: Doug Kong MD Narrative: Date: 12/26/17 Time: 1415 Have independently interviewed and examined pt. Chart reviewed. Case discussed with my PA. Care plan developed with my supervision; agree with above. Doing well overall. Minimal pain. No f/c. Eating well. Breathing well. Bowels stable. Blood sugars controlled. Lungs: clear bilaterally CV: regular AB: soft nt MSE: awake alert appropriate Plan: Dr Kim recommend vancomycin and ceftriaxone (2 grams IV daily). Will start Nozin due to MRSA. Check on path report for osteo. Blood sugars stable Lisinopril started. Monitor lab. Hospital Course Summary Disclaimer: The visit summary below is not to be considered part of the above Progress Note. Hospital Course: 12/21/17 - Admission Initial admission order was placed by the emergency room which was outpatient observation. At time of admission, sepsis, changed inpatient as she does be criteria with diabetic foot ulcer, cellulitis with leukocytosis, failed outpatient treatment. It is expected that her stay will require greater than 2 overnights. Past medical history reviewed. Wound culture was obtained on 12/14/17 that is positive growth for staph aureus Patient was initially started on oral doxycycline. However, erythema and swelling worsened. Start patient on IV vancomycin NS at 100 ML/hr for gentle hydration Monitor Accu-Cheks- Usually takes Metformin and Januvia Monitor blood pressures, continue on home Norvasc, hydrochlorothiazide, metoprolol Lovenox 40 BID for DVT prophylaxis Consultation placed to for wound evaluation. Will place consultation to Dr Kim for further infectious disease recommendations Recheck CBC and BMP recheck tomorrow Will discuss further orders and plan of care with attending, Dr. Hunter At time of discharge medical care will return to primary care provider, Dimitrios 12/22/17 Doing well. WBC with decrease. Ortho (DR Jimenez) evaluated patient: I recommended at minimum a partial amputation to the left great toe through the IP joint. If do not have enough soft tissue coverage to close the wound at the time of this amputation and she may require a wound vac. The other option would be to perform a great toe amputation at the base of the toe. She will think about these options and let me know how she would like to proceed. 12/23/17 Diabetic foot ulcer with Cellulitis and evidence of osteomyelitis of the left great toe distal phalanx. -wound culture from 12/14/17 reveals staph aureus, repeat wound cx shows staph aureus and e coli. -Blood cx neg to date -Failed outpatient treatment (started on doxycycline 12/20/17) -orthopedic surgery consulted, plan for partial amputation to left great toe with possible wound vac application tomorrow afternoon -Will continue wound and skin care -patient on vancomycin, start ertapenem as well Type II diabetes -will continue metformin, Januvia, Canagliflozin and sliding scale insulin as needed -diabetic neuropathy Hypertension -will continue metoprolol succinate, and amlodipine as at home -Hold HCTZ -Adjust for better control Depression -Cymbalta daily and clonazepam PRN Dyslipidemia -on fenofibrate Obstructive sleep apnea not using a CPAP -overnight oximetry gastroesophageal reflux disease -omeprazole 20 mg daily 12/24/17 Op Day Continue on IV Vancomycin and Ertapenem. Vanco dosing as per pharmacy protocol Consult placed for Dr Kim to evaluate and make recommendations of half-way treatment wound culture from 12/14/17 reveals staph aureus, repeat wound cx shows staph aureus and e coli. surgical specimen C/S pending Orthopedic management as per Dr Jimenez Overall blood sugars have been well controlled Leukocytosis, improving. CRP trending down Clear liquid diet and advance as tolerated CBC and BMP tomorrow morning 12/25/17 POD #1 Overall, patient is doing well. Wound cultures revealed E.coli, Staph aureus, enterococcus faecalis and other abeba - Staph aureus resistant to erythromycin, otherwise all pansensitive. Continue on IV Vancomycin and Ertapenem. Vancomycin dosing as per pharmacy protocol. Consult placed for Dr Kim to evaluate and make recommendations of long-term treatment. Orthopedic management as per Dr Jimenez. Pain well controlled with Tylenol. Overall blood sugars have been well controlled. Continue to monitor closely. Slight increase in WBC (12.3) - suspect stress reaction following surgery. Will continue to monitor closely. Patient remains afebrile. Diet advanced successfully. Bowel motivation. Will discontinue IV fluids as oral intake is good. Start lisinopril 10mg nightly to help BP and provide renal protection due to DM. 12/26/17 POD #2 Overall, patient is doing well. Wound cultures revealed E.coli and MRSA. Continue on IV Vancomycin and Ertapenem. Vanco dosing as per pharmacy protocol. Patient seen by Dr. Kim this morning. Continue with Vancomycin but change Ertapenem to ceftriaxone 2 grams IV daily. Awaiting culture sensitivities and bone pathology to determine antibiotics and treatment duration. Will place PICC line today in anticipation of prolonged treatments. Continue orthopedic management as per Dr Jimenez. Pain well controlled with Tylenol. Overall blood sugars have been well controlled. Continue to monitor closely. Leukocytosis resolved. Continue to monitor closely. Remains afebrile. Monitor closely for signs of depression.
[2017-12-26] MEDS ORDERED: CEFTRIAXONE 2 GM in NS 100 ML IV SCH (10:00)
[2017-12-26] MEDS: CEFTRIAXONE 2 GM in NS 50 ML IV SCH (12:20)
[2017-12-26] MEDS: NOZIN NASAL SWAB NAS SCH ×2 (15:49→21:02)
[2017-12-26] MEDS: LISINOPRIL 10 MG TABLET PO SCH (21:02)
[2017-12-27 00:19] VITALS: RESP 16
[2017-12-27] MEDS: NOZIN NASAL SWAB NAS SCH ×2 (05:07→14:09)
[2017-12-27] MEDS: SALINE FLUSH 10ml SYRINGE IVF PRN (05:27)
[2017-12-27] MEDS: ACETAMINOPHEN 325 MG TABLET PO PRN (05:37)
[2017-12-27] MEDS: OMEPRAZOLE 20 MG CAPSULE PO SCH (05:38)
[2017-12-27 07:49] VITALS: BP 113/65; PULSE 63; TEMP 96.1; O2SAT 96
--- NOTE | 2017-12-27 08:35 | Progress Note ---
- Date 12/27/17 Subjective: F/U: POD #3 - S/P left great toe amputation secondary to diabetic foot ulceration and cellulitis. Delisa is seen first this morning is is resting in bed. She reports that she is pain free and doing well. She denies any chest pain, shortness of breath, abdominal pain, nausea, vomiting or dysuria. Her appetite is stable and bowels are moving. Urinary output is stable. Is is eager for discharge home. Labs and vital signs are stable. Discussed pathology report with Dr. Kim revealing margins are clear. Dr. Kim recommended switching to oral Bactrim DS BID x 2 weeks based on sensitivities. Objective Vital signs: Temperature 96.1 F L 12/27/17 07:00 Pulse Rate 63 12/27/17 07:00 Respiratory Rate 16 12/27/17 07:00 Blood Pressure 113/65 12/27/17 07:00 Pulse Oximetry 96 12/27/17 07:00 Height/Weight/BMI: Height 5 ft 4 in Weight 308 lb 3.3 oz Body Mass Index 52.2 Comments: Resting in bed. - Constitutional Present: no acute distress, well nourished, well developed, morbidly obese, cooperative - Routine HEENT Exam Head: Present: normocephalic, atraumatic Eye: Present: PERRL. Absent: conjunctival icterus ENT: Present: mucous membranes moist, oropharynx clear - Routine Respiratory Exam Present: CTA bilaterally. Absent: respiratory distress, wheezes - Routine Cardiovascular Exam Present: RRR, S1, S2 - Routine Abdominal Exam Present: soft, normoactive bowel sounds, non tender - Routine Extremities Exam Present: no edema, full ROM, pulses intact Comments: Bandage and post-op shoe to left foot - no removed on exam. - Routine Back/Spine/Pelvis Exam Back/Spine: Present: full ROM. Absent: vertebral tenderness - Routine Musculoskeletal Exam Musculoskeletal: Present: no clubbing or cyanosis, moving extremities well - Routine Skin Exam Present: intact, dry, warm Comments: Afebrile. - Routine Neurological Exam Present: alert, oriented X3, CN II-XII intact, moving all extremities, hearing grossly intact, normal speech - Routine Lymphatic Exam Lymphatic: Absent: lymphedema - Routine Psychiatric Exam Present: cooperative Results - Labs CBC & Chem 7: 12/27/17 04:43 12/27/17 04:43 Microbiology Results: Microbiology 12/24/17 12:22 Toe Second, Left, Bone Gram Stain - Final 12/24/17 12:22 Toe Second, Left, Bone Surgical Culture - Final Staphylococcus aureus, MRSA Escherichia coli 12/24/17 12:24 Toe Second, Left, Bone Gram Stain - Final 12/24/17 12:24 Toe Second, Left, Bone Surgical Culture - Preliminary Staphyloccocus lugdunensis Gram Negative Zak - Impressions Pathology - left great toe, distal phalanx, amputation specimen: Focal acute necrotizing inflammation with focal fibrosis and reabsorption of underlying bone, compatible with osteomyelitis. Resection margins of bone free of significant inflammation. Inflammation and necrosis of subcutaneous tissue focally extends to soft tissue resection margin. Assessment and Plan (1) Diabetic ulcer of toe Current visit: Yes Status: Acute (2) Status post amputation of great toe Problem details: 12/24/17 - Dr. Jimenez; left great toe. Current visit: Yes Status: Acute Assessment and Plan: Assessment Diabetic foot ulcer with Cellulitis and evidence of osteomyelitis of the left great toe distal phalanx. Failed outpatient treatment S/P left great toe amputation, Dr. Jimenez - 12/24/17 Type II diabetes Hypertension Depression Dyslipidemia Obstructive sleep apnea not using a CPAP Gastroesophageal reflux disease Morbid obesity - BMI 52 Plan Overall, patient is doing well. Wound cultures revealed E.coli and MRSA. Pathology revealed clear resection margins. Dr. Kim recommended switching to oral Bactrim DS BID x 2 weeks. Will discontinue IV Vancomycin and Rocephin. Continue Nozin due to MRSA. Continue orthopedic management as per Dr Jimenez. Pain well controlled with Tylenol. Overall blood sugars have been well controlled. Continue to monitor closely. Anticipate discharge in near future. Monitor closely for signs of depression. DVT Prophylaxis: SCD's Resuscitation Status: Full Code - Time spent with patient Time with patient PN: 30 minutes - Physician Narrative Physician: Doug Kong MD Narrative: Date: 12/27/17 Time: 1255 Have independently interviewed & examined pt. Chart reviewed. Case discussed with CM & my PA. Care plan developed with my supervision; agree with above. Doing well today. Pain controlled with Tylenol. No f/c. Eating well. Breathing well. Ambulating well. Feeling good in general. Lungs: clear bilaterally. CV: regular AB: soft nt/nd Ext: wound wrapped. MSE : awake alert appropriate Plan: Medically stable for discharge to home. Dr Kim recommending 2 week course of Bactrim and cephalexin for coverage. Wound care with Xeroform gauze changed daily and if saturated. F/U with Dr Jimenez in wound center on 01/02. F/U with Dr Plunkett in 1 week - recommend rechecking BMP at that time due to PAVITHRA initiation. See orders for details. Hospital Course Summary Disclaimer: The visit summary below is not to be considered part of the above Progress Note. Hospital Course: 12/21/17 - Admission Initial admission order was placed by the emergency room which was outpatient observation. At time of admission, sepsis, changed inpatient as she does be criteria with diabetic foot ulcer, cellulitis with leukocytosis, failed outpatient treatment. It is expected that her stay will require greater than 2 overnights. Past medical history reviewed. Wound culture was obtained on 12/14/17 that is positive growth for staph aureus Patient was initially started on oral doxycycline. However, erythema and swelling worsened. Start patient on IV vancomycin NS at 100 ML/hr for gentle hydration Monitor Accu-Cheks- Usually takes Metformin and Januvia Monitor blood pressures, continue on home Norvasc, hydrochlorothiazide, metoprolol Lovenox 40 BID for DVT prophylaxis Consultation placed to for wound evaluation. Will place consultation to Dr Kim for further infectious disease recommendations Recheck CBC and BMP recheck tomorrow Will discuss further orders and plan of care with attending, Dr. Hunter At time of discharge medical care will return to primary care provider, Dimitrios 12/22/17 Doing well. WBC with decrease. Ortho (DR Jimenez) evaluated patient: I recommended at minimum a partial amputation to the left great toe through the IP joint. If do not have enough soft tissue coverage to close the wound at the time of this amputation and she may require a wound vac. The other option would be to perform a great toe amputation at the base of the toe. She will think about these options and let me know how she would like to proceed. 12/23/17 Diabetic foot ulcer with Cellulitis and evidence of osteomyelitis of the left great toe distal phalanx. -wound culture from 12/14/17 reveals staph aureus, repeat wound cx shows staph aureus and e coli. -Blood cx neg to date -Failed outpatient treatment (started on doxycycline 12/20/17) -orthopedic surgery consulted, plan for partial amputation to left great toe with possible wound vac application tomorrow afternoon -Will continue wound and skin care -patient on vancomycin, start ertapenem as well Type II diabetes -will continue metformin, Januvia, Canagliflozin and sliding scale insulin as needed -diabetic neuropathy Hypertension -will continue metoprolol succinate, and amlodipine as at home -Hold HCTZ -Adjust for better control Depression -Cymbalta daily and clonazepam PRN Dyslipidemia -on fenofibrate Obstructive sleep apnea not using a CPAP -overnight oximetry gastroesophageal reflux disease -omeprazole 20 mg daily 12/24/17 Op Day Continue on IV Vancomycin and Ertapenem. Vanco dosing as per pharmacy protocol Consult placed for Dr Kim to evaluate and make recommendations of mcc treatment wound culture from 12/14/17 reveals staph aureus, repeat wound cx shows staph aureus and e coli. surgical specimen C/S pending Orthopedic management as per Dr Jimenez Overall blood sugars have been well controlled Leukocytosis, improving. CRP trending down Clear liquid diet and advance as tolerated CBC and BMP tomorrow morning 12/25/17 POD #1 Overall, patient is doing well. Wound cultures revealed E.coli, Staph aureus, enterococcus faecalis and other abeba - Staph aureus resistant to erythromycin, otherwise all pansensitive. Continue on IV Vancomycin and Ertapenem. Vancomycin dosing as per pharmacy protocol. Consult placed for Dr Kim to evaluate and make recommendations of long-term treatment. Orthopedic management as per Dr Jimenez. Pain well controlled with Tylenol. Overall blood sugars have been well controlled. Continue to monitor closely. Slight increase in WBC (12.3) - suspect stress reaction following surgery. Will continue to monitor closely. Patient remains afebrile. Diet advanced successfully. Bowel motivation. Will discontinue IV fluids as oral intake is good. Start lisinopril 10mg nightly to help BP and provide renal protection due to DM. 12/26/17 POD #2 Overall, patient is doing well. Wound cultures revealed E.coli and MRSA. Continue on IV Vancomycin and Ertapenem. Vanco dosing as per pharmacy protocol. Patient seen by Dr. Kim this morning. Continue with Vancomycin but change Ertapenem to ceftriaxone 2 grams IV daily. Awaiting culture sensitivities and bone pathology to determine antibiotics and treatment duration. Will place PICC line today in anticipation of prolonged treatments. Continue orthopedic management as per Dr Jimenez. Pain well controlled with Tylenol. Overall blood sugars have been well controlled. Continue to monitor closely. Leukocytosis resolved. Continue to monitor closely. Remains afebrile. Monitor closely for signs of depression. 12/27/17 #3 Overall, patient is doing well. Wound cultures revealed E.coli and MRSA. Pathology revealed clear resection margins. Dr. Kim recommended switching to oral Bactrim DS BID x 2 weeks. Will discontinue IV Vancomycin and Rocephin. Continue Nozin due to MRSA. Continue orthopedic management as per Dr Jimenez. Pain well controlled with Tylenol. Overall blood sugars have been well controlled. Continue to monitor closely. Anticipate discharge in near future. Monitor closely for signs of depression.
[2017-12-27] MEDS: AMLODIPINE 10 MG TABLET PO SCH (08:39)
[2017-12-27] MEDS: METFORMIN 500 MG TABLET PO SCH (08:39)
[2017-12-27] MEDS: MELOXICAM 15 MG TABLET PO SCH (08:39)
[2017-12-27] MEDS: FENOFIBRATE 145 MG TABLET PO SCH (08:40)
[2017-12-27] MEDS: SITAGLIPTIN 100 MG TABLET PO SCH (08:40)
[2017-12-27] MEDS: DULOXETINE 60 MG CAPSULE PO SCH (08:40)
[2017-12-27] MEDS: DULOXETINE 30 MG CAPSULE PO SCH (08:40)
[2017-12-27] MEDS: CANAGLIFLOZIN 100mg TABLET PO SCH (08:40)
[2017-12-27] MEDS: POLYETHYL GLYCOL 3350 17gm PACKET PO SCH (08:41)
[2017-12-27] MEDS: VITAMIN B COMPLEX + C TABLET PO SCH (08:41)
[2017-12-27] MEDS ORDERED: SULFAMETHOXAZOLE/TMP 800 MG/160 MG DS TABLET PO SCH (09:00)
[2017-12-27] MEDS: CEFTRIAXONE 2 GM in NS 50 ML IV SCH (10:17)
--- NOTE | 2017-12-27 12:41 | Discharge Summary ---
Discharge Information Date of admission: 12/21/17 15:31 Anticipated date of discharge: 12/27/17 Attending Physician: Doug Kong MD Primary care physician: Yelena Plunkett DO Consults: 12/21/17 16:12 W[facility] Consult [CONS] Shun Jimenez - orthopedics 12/22/17 05:36 Case Management Consult [Case Management Consult] [CONS] Routine 12/24/17 14:59 Physician Consult [CONS] Ruma Kim - infectious disease - Discharge Diagnosis (1) Status post amputation of great toe Status: Acute (2) Diabetic ulcer of toe Status: Acute Discharge diagnosis Diabetic foot ulcer with cellulitis Evidence of osteomyelitis of the left great toe distal phalanx secondary to staphylococcus lugdunensis, E.coli, streptococcus viridans S/P left great toe amputation, Dr. Jimenez - 12/24/17 Failed outpatient antibiotic and wound care treatment Associated conditions and complications Leukocytosis - resolved. Type II diabetes Hypertension Depression Dyslipidemia Obstructive sleep apnea not using a CPAP Gastroesophageal reflux disease Morbid obesity - BMI 52 - Procedures Procedures: DATE OF PROCEDURE 12/24/2017 PREOPERATIVE DIAGNOSIS Left great toe diabetic foot ulcer with osteomyelitis. POSTOPERATIVE DIAGNOSIS Left great toe diabetic foot ulcer with osteomyelitis. PROCEDURE Left great toe partial amputation. SURGEON Blayne Jimenez MD ANESTHESIA TIVA with ankle block. EBL AND FLUIDS Please see Anesthetic Record. DESCRIPTION OF PROCEDURE Mrs. Baker and her left toe were identified and marked in the preoperative holding area. She was brought back to the operating suite and placed supine on the operating table. A general anesthetic was administered as well as an ankle block. The left lower extremity was then prepped and draped in my normal sterile fashion. Time-out was performed. The patient was on scheduled antibiotics. Her ulceration was plantarly at the tip of the great toe. There was skin proximally. Once this skin was removed, it showed that the ulceration was actually quite a bit larger and did penetrate down to bone. There was necrotic subcutaneous tissue within the wound down to bone. This was removed sharply. At this point a circumferential incision was made just proximal to the base of the nail plate down to bone. The soft tissue was dissected from the bone proximally up to the interphalangeal joint. The capsule was then incised as well as the collateral ligaments and the distal phalanx and surrounding tissue was removed and placed on the back table. I did send some of the earlier necrotic tissue for culture. There was no obvious necrosis to the remaining soft tissue, including the proximal phalanx. The wound was thoroughly irrigated with normal saline. I then irrigated with a half-liter of Aricept solution. There was some minimal bleeding but nothing that needed to be cauterized. The skin edges were then brought back together using simple and horizontal mattress interrupted sutures, bringing the skin edges back together nicely. A sterile dressing was then placed. The drapes were removed. The patient was allowed to awaken from general anesthesia and then taken to the recovery room under the care of Anesthesia. She tolerated the procedure well. There were no complications. - Laboratory Labs: 12/23/17 12/24/17 12/25/17 12/26/17 12/27/17 WBC 13.3 10.4 12.36 10.7 10.3 Hgb 14.6 13.7 13.5 13.3 13.4 Plt 279 252 244 231 242 Na 141 141 143 143 142 K 3.9 3.9 4.0 3.8 4.1 BUN 23 24 18 20 22 SCr 1.2 1.2 1.2 1.2 1.3 Glu 144 136 112 118 119 CRP 11.7 20.5 - Microbiology Microbiology 12/24/17 12:24 Toe Second, Left, Bone Gram Stain - Final 12/24/17 12:24 Toe Second, Left, Bone Surgical Culture - Final Staphyloccocus lugdunensis Escherichia coli Streptococcus viridans group 12/24/17 12:22 Toe Second, Left, Bone Gram Stain - Final 12/24/17 12:22 Toe Second, Left, Bone Surgical Culture - Final Staphylococcus aureus, MRSA Escherichia coli - Radiology Radiology: Date of Exam: 12/21/17 Type of Exam(s): XR foot LT min 3V Reason for Exam(s): C/f osteo Findings: There is no acute fracture, dislocation or malalignment identified. No obvious lytic lesions or periosteal reaction to suggest osteomyelitis. Impression: No acute osseous abnormality. Date of Exam: 12/22/17 Type of Exam(s): MR foot LT wo/w con Reason for Exam(s): Great toe open wound and cellulitis Findings: There is abnormal T1 hypointensity and T2 hyperintensity within the great toe distal phalanx. Underlying this is a skin wound with a T2 hyperintense phlegmon or small abscess measuring 1.3 cm in diameter on axial T1 postcontrast image #24 which has a sinus tract to the plantar surface. This is at the area of clinically indicated skin wound. The remaining bone marrow signal intensity is normal. No acute fracture. Mild degenerative change in the midfoot. No other fluid collections. Edema in the intrinsic foot musculature, a common finding in diabetics. There is thickening of the distal Achilles tendon suggesting tendinopathy. The remaining flexor and extensor tendons are grossly intact. Impression: Osteomyelitis of the great toe distal phalanx. - Pathology Diagnosis - Left great toe, distal phalanx, amputation specimen: - Focal acute necrotizing inflammation with focal fibrosis and reabsorption of underlying bone, compatible with osteomyelitis. - Reassertion margins of bone free of significant inflammation. - Inflammation and necrosis of subcutaneous tissue focally extends to soft tissue resection margin. History of Present Illness HPI: She is a 57-year-old female who has been under the outpatient wound care services for left great toe ulcer. She reports she has been receiving wound care for approximately 2 weeks. Outpatient wound culture was obtained on which was positive for staph aureus . Patient was started on oral doxycycline yesterday 12/20/17. Today, swelling and erythema is worse. She presented to the wound care clinic. However, patient was directed to present to the emergency room for acute evaluation and treatment. WBC count was found to be slightly elevated at 13, neutrophils 74%. Venous lactate 1.4. Renal function is slightly elevated with a B1 of 24 and creatinine of 1.3, last creatinine was in August 2017 at which it was 1.0, which appears to be her baseline. CRP is slightly elevated at 33.5. Left foot x-ray does not reveal any acute osseous abnormality or concern for osteomyelitis. She was started on IV Vancomycin while in the ER. Due to the worsening symptoms despite outpatient oral antibiotics as well as wound care. It was felt that patient would require more aggressive treatment, the hospital services were contacted and accepted patient for inpatient admission. It is expected that her stay will be greater than 2 overnights. For complete details of the H&P refer to that document. Objective Vital signs: Temperature 96.1 F L 12/27/17 07:00 Pulse Rate 63 12/27/17 07:00 Respiratory Rate 16 12/27/17 07:00 Blood Pressure 113/65 12/27/17 07:00 Pulse Oximetry 96 12/27/17 07:00 Height/Weight/BMI: Height 5 ft 4 in Weight 308 lb 3.3 oz Body Mass Index 52.2 Hospital Course This is a general summary of the patient's hospital course. For more details refer to the complete medical record. Hospital course: 12/21/17 - Admission Patient admitted to observation status but later changed to inpatient status due to diabetic with foot ulceration and failed outpatient treatment. She was being followed in wound clinic and was treated with oral doxycycline starting on 12/20/17 without improvement and progressive worsening. Wound culture obtained as outpatient revealed staph aureus. Repeat wound culture obtained with results pending. Upon admission, patient was started on vancomycin which was managed by pharmacy. Hydration was initiated with NS. Home medications were resumed including her home metformin and Januvia for her diabetes and Norvasc and metoprolol for her hypertension. HCTZ was placed on hold. Blood sugars were monitor closely and remained stable throughout admission. Sliding scale insulin was available. Lovenox was initiated for DVT prophylaxis. Continuation of home omeprazole for GERD and GI protection. Dr. Jimenez was consulted for wound and surgical evaluation. Dr. Kim was consulted for further infectious disease treatment recommendations. 12/22/17 Dr. Jimenez recommended, at minimum, a partial amputation to the left great toe through the IP joint with possible wound vac placement. Blood cultures remained negative. Improved leukocytosis (WBC 11.8). Repeat wound culture revealed gram negative rods (later found to be E. coli, staphylococcus aureus, Enterococcus faecalis and other abeba). Overnight oximetry obtained given BMI and risk for obstructive sleep apnea. 12/23/17 Plan for partial amputation to left great toe with possible wound vac placement for 12/24/17. Dr. Jimenez and team continued with wound cares. Continuation of IV vancomycin (day 2) with addition of ertapenem for additional coverage of pathogens. Blood cultures remained negative. CRP trending down (33.5 on 12/21/17, decreased to 11.7 on 12/23/17) 12/24/17 Patient underwent left great toe partial amputation. No wound vac was placed. Continued on IV Vancomycin (day 3) and Ertapenem (day 2). Leukocytosis resolved (WBC 10.4). Diet successfully advanced following surgery. 12/25/17 POD #1 Wound cultures obtained on admission on 12/21/17 revealed E.coli, Staph aureus, enterococcus faecalis and other abeba - Staph aureus resistant to erythromycin, otherwise all pansensitive. Continued on IV Vancomycin (day 4) and Ertapenem (day 3). Pain well controlled with Tylenol. Orthopedic and wound care per Dr. Jimenez. Slight increase in WBC (12.3) - suspect stress reaction following surgery. Will continue to monitor closely. Patient remains afebrile. IV fluids discontinued as patient tolerating good oral intake. Blood pressure elevated despite home medications. Lisinopril 10mg initiated nightly to help BP and provide renal protection due to diabetes. 12/26/17 POD #2 Surgical wound cultures revealed E.coli and MRSA. Culture sensitivities and bone pathology results pending to determine antibiotics and treatment duration. Continue on IV Vancomycin (day 5) and Ertapenem (day 4). Dr. Kim (infectious disease) recommended continuing treatment with vancomycin but discontinuing ertapenem and starting ceftriaxone 2g IV daily. Leukocytosis resolved (WBC 10.7) Increased tearfulness and anxiousness about health in the future. Patient monitored closely for signs of worsening depression. Nozin initiated in light of MRSA. 12/27/17 POD #3 Discharge Wound cultures revealed E.coli, MRSA with the addition of Streptococcus viridans. Sensitivities for Staph and E. coli available and only resistant to erythromycin. Sensitivities for Streptococcus viridans pending Pathology revealed resection margins of bone free of significant inflammation. Dr. Kim recommended switching to oral Bactrim DS BID x 2 weeks with Keflex 500mg QID x 2 weeks. Will discontinue IV Vancomycin and Rocephin. Continue Nozin due to MRSA. Patient in better spirits today. Plan to discharge home. Patient instructed to follow up with Dr. Plunkett in 1 week - repeat BMP at that time. Dr. Jimenez on 01/02/18 in Wound Clinic See orders for details. Time spent with patient: greater than 35 minutes Resuscitation Status: Full Code Discharge Plan - Discharge Disposition Disposition: Discharged Home, Self-Care *Condition: Stable Reason For Visit (Visit label in EMR): Diabetic foot ulcer/osteomyelitits, s/p toe amp - Discharge Medications *Discharge Medications: New Acetaminophen [Tylenol] 325 - 650 mg PO Q5H PRN tab PRN Reason: Discomfort CephALEXin [Keflex 500 mg] 500 mg PO QID 14 Days #56 cap Cholecalciferol [Vit. D-3] 1,000 unit PO DAILY #30 tab Lisinopril [Prinivil] 10 mg PO HS #30 tab Milk of Magnesia [Mom] 30 ml PO DAILY PRN udc PRN Reason: Constipation Nozin Nasal Swab 1 each SUNSHINE 0600,1400,2200 #20 appl Senna + Docusate [Senna Plus Tablet] 1 tab PO BID PRN tab PRN Reason: Constipation Sulfamethox/Tmp [Bactrim Ds] 1 tab PO BID #28 tab PEG 3350 17gm PACKET [Miralax] 17 gm PO DAILY packet Continue hydroCHLOROthiazide [Hydrochlorothiazide] 25 mg PO DAILY #30 Canagliflozin [Invokana] 100 mg PO DAILY Sitagliptin Phosphate [Januvia] 50 mg PO DAILY Omeprazole Magnesium [Prilosec Otc] 20 mg PO DAILY Duloxetine HCl 30 mg PO DAILY Vitamin B Complex [Super B-50 Complex] 1 cap PO DAILY Fenofibrate Nanocrystallized [Fenofibrate] 145 mg PO DAILY Amlodipine [Norvasc] 10 mg PO DAILY Duloxetine HCl [Cymbalta] 60 mg PO DAILY #30 Metoprolol Succinate 100 mg PO DAILY #30 SUMAtriptan TAB [Imitrex] 100 mg PO DAILY PRN #0 tab PRN Reason: Migraine Headache Meloxicam [Mobic] 15 mg PO DAILY #0 tab Cholecalciferol (Vitamin D3) [Vitamin D3] 1,000 unit PO DAILY Metformin [Glucophage] 1,000 mg PO WB ClonazePAM [Klonopin] 0.5 mg PO BID PRN PRN Reason: Anxiety Discontinued Doxycycline Hyclate [Doxycycline Hyclate] 100 mg PO BID - Discharge Packet/Instructions *Diet: Diabetic - carb controlled 2000 kcal. *Activity: As tolerated. *Pain Management/Treatment: Tylenol 650mg every 5 hours as needed. *Wound Care: Keep dressing clean and dry. Change gauze only as needed. Monitor wound closely for signs of infection, redness, swelling, discharge, bleeding or other concerns. Additional Instructions: You had a partial left great toe amputation on 12/24/[address] Jimenez. During your hospitalization, you were treated with Vancomycin x 6 days in conjunction with ertrapenem x 5 days. Prior to discharge, you were changed to Bactrim DS twice daily and Keflex 500mg 4x daily for 2 weeks. Follow up with Dr. Jimenez and Juancarlos in ortho clinic on 01/02/18. Keep your wound dressing clean and dry. You may change the gauze dressing as needed. Monitor closely for signs of infection - fever, redness, swelling, increased pain, red streaking, increased or change in discharge. Monitor your blood sugars closely as stress, antibiotics and infections can all alter your blood sugars. Take your home medications as directed. You were started on lisinopril 10mg at bedtime for additional blood pressure control and preservation of your kidneys. Follow up with Dr. Plunkett in 1 week to discuss medication changes and hospital follow-up. Prior to seeing Dr. Plunkett, have your labs checked so that she can review them with you during your appointment. *Expected Signs/Symptoms: Gradual improvement with healing and resolution of symptoms. *Notify Physician if: fever >100.4, chest pain, shortness of breath, increased redness, swelling, *During Business Hours Contact: Dr. Jimenez at [phone] Plunkett at . *After Business Hours Contact: the oncall clinician for Dr. Jimenez at or the nearest emergency room. *Pending Lab/Results: Follow up w/Provider - Referrals/Follow Up *Referrals/Follow Up: Juancarlos Rodriguez PA [Physician Retail Performance Coach] - 01/02/18 1:00 pm Yelena Plunkett DO [Primary Care Provider] - 01/03/18 11:15 am (APPOINTMENT ON 01/03 AT 11:15.) - Patient Handouts Patient Handouts: Osteomyelitis (GEN), Toe Amputation (DC) - Dismissal Complete Discharge Instructions are:: Complete Physician Narrative - Narrative Physician: Doug Kong MD Attestation Narrative: Date: 12/27/17 Time: 1700 I have independently interviewed and examined patient prior to discharge. See my progress note for details. Medically stable for discharge to home.
== END 2017-12-27 15:00 | disposition home or self-care (01) | DRG 617 ==
LOC: ED 12:39 → MED 12:39 → SUATTDRO 15:31
PROVIDERS: ADMIT Internal Medicine Cardiovascular Disease; ATTEND Hospitalist